=== PATIENT | female | born 1945 | race Caucasian/White ===

== ENCOUNTER → 2019-03-10 | Day surgery (SDC) | payer OTHER | LOC: JRADIR 09:51 ==

== ENCOUNTER → 2019-03-26 | Day surgery (SDC) | payer OTHER ==
--- NOTE | 2019-05-14 09:31 | PATH ---
Cytology Non-Gynecological Report Patient Name: HYUN STUBBS [facility]. Rec. #: [id number] /Age/Gender: 1945 (Age: 74) / F Account: [id number] Location: RADIOLOGY INTER Taken: 03/26/2019 Received: 03/27/2019 Reported: 03/27/2019 Physicians: Raúl Martínez M.D. Specimen(s) Received RIGHT THYROID FNA Clinical History Right, 1.98 x 1.53 x 1.43 cm Final Diagnosis THYROID, RIGHT, FINE NEEDLE ASPIRATION: UNSATISFACTORY FOR EVALUATION. BETHESDA CLASS I: NON-DIAGNOSTIC. RARE FOLLICULAR CELLS AND RARE COLLOID PRESENT. Comment: The specimen has insufficient follicular cell clusters and/or colloid; and suboptimal for complete cytopathologic evaluation according to [facility] [place] [facility] for Reporting Thyroid FNA. If the nodule has worrisome ultrasound imaging properties, suggest repeat FNA, as warranted. Electronically Signed Avelina Dos Santos M.D. Gross Description Received are eight direct smears, four of which are air-dried and Diff-Quik stained, and four of which are alcohol fixed and Pap stained. Also received is 20 ml of bloody formalin from which one cellblock is prepared.
== END | disposition home or self-care (01) ==
LOC: JRADIR 10:08
PROVIDERS: ATTEND Internal Medicine Endocrinology, Diabetes & Metabolism
PROC: 0G9K3ZX Drainage of Thyroid Gland, Percutaneous Approach, Diagnostic (ICD-10-PCS; principal; 2019-03-26)
PROC: BG44ZZZ Ultrasonography of Thyroid Gland (ICD-10-PCS; 2019-03-26)
DX: E04.1 Nontoxic single thyroid nodule (principal)
CPT/HCPCS: 76942; 88173; 88305-TC

== ENCOUNTER 2020-05-05 06:48 | Inpatient (IN) | payer OTHER ==
[2020-05-05 07:13] VITALS: BMI 29.2
--- NOTE | 2020-05-05 07:29 | PDOC ---
Attending Attestation - Resident Resident Name: Josiane Haney - HPI HPI: 05/05/20 09:36 Pt presents to the ED complaining of the acute onset of nausea, non bloody, non bilious vomiting and diarrhea. Patient has history of HTN, DM, HLD. Denies fever. Denies abdominal pain but complains of severe lightheadness. Denies prior abdominal surgeries. 05/05/20 09:38 - Physicial Exam PE: 05/05/20 09:40 Agree with resident exam. Patient is uncomfortable, retching and dry heaving on the stretcher. Abdomen is soft, non distended, but patient complains of diffuse abdominal tenderness. - Medical Decision Making 05/05/20 09:41 pt presents to the ED complaining of nausea and non bloody non billious vomiting and diarrhea. Vomiting in the ED despite IVF and zofran. Abdomen diffusely tender. Differential includes electrolyte disturbance, small bowel obstruction, urinary tract or other infection, biliary disease or pancreatitis, ACS, other intraabdominal pathology. Will check labs and Ct abdomen pelvis and reassess. Remains nauseous after zofran. Will treat with reglan. 05/05/20 09:45 Discharge - Discharge Information Problems reviewed: Yes Clinical Impression/Diagnosis: Weakness, Nausea vomiting and diarrhea Condition: Stable [facility]position[facility] - Follow up/Referral - Patient Discharge Instructions - Post Discharge Activity
--- NOTE | 2020-05-05 08:02 | PDOC ---
History of Present Illness - General Chief Complaint: Vomiting/Diarrhea Stated Complaint: VOMITING,WEAKNESS Time Seen by Provider: 05/05/20 07:28 - History of Present Illness Initial Comments: Pt is a 75yo F with PMH DM, HTN, HLD, ILD who presents with vomiting, diarrhea, and weakness. Pt states that symptoms began last night. Reports 5 episodes of diarrhea and multiple episodes of vomiting. Denies blood in emesis or bowel mov ements. States that she has been unable to keep either food or water down without vomiting. Denies any sick contacts, recent travel, new food. Denies f/c, chest pain, SOB, abdominal pain. PCP: Laura PMH: see HPI PSHx: thyroid surgery All: NKDA Past History - Medical History Allergies/Adverse Reactions: Allergies Allergy/AdvReac Type Severity Reaction Status Date / Time No Known Allergies Allergy Unverified 05/05/20 07:13 Home Medications: Ambulatory Orders Aspirin [Aspirin EC] 81 mg PO DAILY 03/21/20 Bimatoprost [Lumigan] 1 drop OU HS 03/21/20 Budesonide/Formeterol Fumarate [SYMBICORT 160/4.5mcg -] 1 inh PO BID #1 cannister 03/21/20 Furosemide 20 mg PO DAILY 03/21/20 Gabapentin 600 mg PO TID 03/21/20 Insulin Degludec [Tresiba Flextouch U-100] 45 unit SQ DAILY #1 insuln.pen 03/21/20 Prednisone See Taper PO DAILY #15 tablet 03/21/20 Ropinirole HCl [Requip -] 2 mg PO DAILY 03/21/20 Simvastatin 40 mg PO DAILY 03/21/20 Sitagliptin Phos/Metformin HCl [Janumet 50-1,000 mg Tablet] 1 tab PO BID 03/21/20 Bimatoprost [Lumigan] 1 drop OU DAILY 05/05/20 Asthma: Yes COPD: No Diabetes: Yes HTN: Yes Hypercholesterolemia: Yes - Psycho-Social/Smoking History Smoking History: Never smoked Have you smoked in the past 12 months: No Information on smoking cessation initiated: No - Substance Abuse Hx (Audit-C & DAST Scrn) How often the patient has a drink containing alcohol: Never Score: In Men: 4 or > Positive; In Women: 3 or > Positive: 0 Screen Result (Pos requires Nsg. Audit-10AR): Negative In the last yr the pt used illegal drug/Rx for NonMed reason: No Score: Yes response is considered Positive: 0 Screen Result (Positive result requires Nsg. DAST-10): Negative Review of Systems - Review of Systems Able to Perform ROS?: Yes Comments:: CONSTITUTIONAL:Reports weakness, denies fever, chills CARDIOVASCULAR:denies chest pain, palpitations RESPIRATORY:denies cough, shortness of breath, wheezing GASTROINTESTINAL: Reports nausea, vomiting, diarrhea; denies abdominal pain, melena, hematochezia GENITOURINARY:denies dysuria, frequency, urgency, hematuria NEUROLOGIC:denies headache *Physical Exam - Vital Signs Last Vital Signs Temp Pulse Resp BP Pulse Ox 97.6 F 78 18 165/77 98 05/05/20 07:09 05/05/20 07:09 05/05/20 07:09 05/05/20 07:09 05/05/20 07:09 - Physical Exam General: awake, alert, fully oriented, in moderate distress, well developed, well nourished Head: normocephalic, atraumatic Eyes: PERRL, anicteric sclera, conjunctiva clear ENT: Moist mucous membranes Lung: equal breath sounds b/l, CTA b/l, no crackles, wheezes; speaks full sentences Heart: RRR, normal S1, S2, no murmurs, rubs, gallops Abdomen: soft, non tender, hypoactive bowel sounds, no guarding, rebound, masses Extremities: 5/5 motor strength b/l LE, no edema, PT pulses 2+ and symmetric Neuro: CN2-12 grossly intact, moves all extremities, normal speech, abnormal gait, sensation intact Skin: warm, dry, no rashes or lesions noted 05/05/20 16:22 ED Treatment Course - LABORATORY CBC & Chemistry Diagram: 05/05/20 08:00 05/05/20 08:00 Medical Decision Making - Medical Decision Making Ms. Ferrari is a 75yo F with PMH DM, HTN, HLD, ILD who presents with vomiting, diarrhea, weakness. Vital Signs Temp Pulse Resp BP Pulse Ox 97.6 F 78 18 165/77 98 05/05/20 07:09 05/05/20 07:09 05/05/20 07:09 05/05/20 07:09 05/05/20 07:09 Laboratory 05/05/20 05/05/20 05/05/20 08:00 08:00 08:00 WBC 15.4 K/mm3 H K/mm3 (4.0-10.0) RBC 4.65 M/mm3 M/mm3 (3.60-5.2) Hgb 13.1 GM/dL GM/dL (10.7-15.3) Hct 40.5 % % (32.4-45.2) MCV 87.0 fl fl (80-96) MCH 28.2 pg pg (25.7-33.7) MCHC 32.4 g/dl g/dl (32.0-36.0) RDW 14.3 % % (11.6-15.6) Plt Count 184 K/MM3 K/MM3 (134-434) MPV 11.4 fl H D fl (7.5-11.1) Absolute Neuts (auto) 13.4 K/mm3 H K/mm3 (1.5-8.0) Neutrophils % 87.0 % H D % (42.8-82.8) Lymphocytes % 7.1 % L D % (8-40) Monocytes % 5.2 % % (3.8-10.2) Eosinophils % 0.5 % % (0-4.5) Basophils % 0.2 % % (0-2.0) Nucleated RBC % 0 % % (0-0) Sodium 140 mmol/L mmol/L (136-145) Potassium 3.7 mmol/L mmol/L (3.5-5.1) Chloride 103 mmol/L mmol/L (98-107) Carbon Dioxide 28 mmol/L mmol/L (21-32) Anion Gap 9 MMOL/L MMOL/L (8-16) BUN 27.8 mg/dL H mg/dL (7-18) Creatinine 0.8 mg/dL mg/dL (0.55-1.3) Est GFR (CKD-EPI)AfAm 84.18 Est GFR (CKD-EPI)NonAf 72.63 Random Glucose 204 mg/dL H mg/dL (74-106) Lactic Acid Calcium 9.0 mg/dL mg/dL (8.5-10.1) Total Bilirubin 0.3 mg/dL mg/dL (0.2-1) AST 17 U/L U/L (15-37) ALT 27 U/L U/L (13-61) Alkaline Phosphatase 60 U/L U/L (45-117) Creatine Kinase 92 U/L U/L (26-192) Troponin I < 0.02 ng/ml ng/ml (0.00-0.05) Total Protein 6.8 g/dl g/dl (6.4-8.2) Albumin 3.6 g/dl g/dl (3.4-5.0) Lipase 140 U/L U/L (73-393) Urine Color Urine Appearance Urine pH Ur Specific [place] Urine Protein Urine Glucose (UA) Urine Ketones Urine Blood Urine Nitrite Urine Bilirubin Urine Urobilinogen Ur Leukocyte Esterase Urine WBC (Auto) Urine RBC (Auto) Urine Casts (Auto) U Epithel Cells (Auto) Urine Bacteria (Auto) 05/05/20 05/05/20 08:20 09:00 WBC RBC Hgb Hct MCV MCH MCHC RDW Plt Count MPV Absolute Neuts (auto) Neutrophils % Lymphocytes % Monocytes % Eosinophils % Basophils % Nucleated RBC % Sodium Potassium Chloride Carbon Dioxide Anion Gap BUN Creatinine Est GFR (CKD-EPI)AfAm Est GFR (CKD-EPI)NonAf Random Glucose Lactic Acid 1.0 mmol/L mmol/L (0.4-2.0) Calcium Total Bilirubin AST ALT Alkaline Phosphatase Creatine Kinase Troponin I Total Protein Albumin Lipase Urine Color Yellow Urine Appearance Clear Urine pH 7.5 (5.0-8.0) Ur Specific [place] 1.018 (1.010-1.035) Urine Protein Trace (NEGATIVE) Urine Glucose (UA) 2+ H (NEGATIVE) Urine Ketones Negative (NEGATIVE) Urine Blood Negative (NEGATIVE) Urine Nitrite Negative (NEGATIVE) Urine Bilirubin Negative (NEGATIVE) Urine Urobilinogen 0.2 mg/dL mg/dL (0.2-1.0) Ur Leukocyte Esterase 1+ H (NEGATIVE) Urine WBC (Auto) 64 /uL /uL (0-25.8) Urine RBC (Auto) 6 /uL /uL (0-23.9) Urine Casts (Auto) 1 /uL /uL (0-3.1) U Epithel Cells (Auto) 16 /uL /uL (0-25.1) Urine Bacteria (Auto) 193 /uL /uL (0-1359) DDx: gastroenteritis, SBO, ACS, mesenteric ischemia Plan: labs, EKG, CT a/p EKG: HR 75, Normal sinus rhythm, intervals WNL, no ST changes Reassessment Given Zofran and Reglan for nausea, with no effect 05/05/20 11:38 CBC: leukocytosis (15.4), no anemia; CMP: electrolytes WNL UA with 1+ LE, given Rocephin Given Ofirmev for discomfort 05/05/20 12:56 Pt appears to be resting comfortably in bed Repeat EKG - HR 89, normal sinus rhythm, unchanged from initial EKG 05/05/20 13:33 Pt tolerating water, asking for food, says nausea is improved Complaining of leg pain, that she has a history of, treated in the past with predisone; no focal neuro exam findings on reassessment. Attempted to sit patient up, she complained of weakness. 05/05/20 15:00 Attempted to walk patient, she complained of weakness, dizziness and had unsteady gait, ordered Head CT. Head CT: mild to moderate atrophy, no gross evidence of focal intracranial lesion or hemorrhage Given patient's weakness/difficulty with ambulation, she is unstable for discharge. Patient and son agreeable for admission and rehabilitative care. 05/05/20 16:56 Spoke with Anshu Coburn ALL SOURCE ANALYST, who accepted care for patient. Admitting Dr. Brown Disposition Admit inpatient Discharge - Discharge Information Problems reviewed: Yes Clinical Impression/Diagnosis: Weakness, Nausea vomiting and diarrhea Condition: Stable - Admission Yes - Follow up/Referral Referrals: Barry Sanchez MD [Primary Care Provider] - - Patient Discharge Instructions - Post Discharge Activity
[2020-05-05] MEDS ORDERED: SODIUM CHLORIDE 500 ML IV STA (08:04)
[2020-05-05] MEDS ORDERED: ONDANSETRON 4 MG/2 ML VIAL IVPB ONE (08:06)
[2020-05-05] MEDS ORDERED: ONDANSETRON 4 MG/2 ML VIAL IVPUSH ONE (08:08)
[2020-05-05 08:32] LABS: BASO % 0.2 % (0-2.0); EOS % 0.5 % (0-4.5); HEMATOCRIT 40.5 % (32.4-45.2); HEMOGLOBIN 13.1 GM/dL (10.7-15.3); LYMPH % 7.1 % (8-40); MCH 28.2 pg (25.7-33.7); MCHC 32.4 g/dl (32.0-36.0); MEAN PLT VOLUME 11.4 fl (7.5-11.1); MONO % 5.2 % (3.8-10.2); PLATELET COUNT 184 K/MM3 (134-434); RBC 4.65 M/mm3 (3.60-5.2); RDW 14.3 % (11.6-15.6); WHITE BLOOD COUNT 15.4 K/mm3 (4.0-10.0)
[2020-05-05 08:58] LABS: ALBUMIN 3.6 g/dl (3.4-5.0); BILIRUBIN,TOTAL 0.3 mg/dL (0.2-1); BLOOD UREA NITROGEN 27.8 mg/dL (7-18); CREATININE 0.8 mg/dL (0.55-1.3); POTASSIUM 3.7 mmol/L (3.5-5.1); TOT PROT 6.8 g/dl (6.4-8.2)
[2020-05-05 09:04] LABS: LIPASE 140 U/L (73-393)
[2020-05-05] MEDS ORDERED: METOCLOPRAMIDE HCL INJECTION 10 MG/2 ML VIAL IVPUSH ONE (09:11)
[2020-05-05] MEDS ORDERED: METOCLOPRAMIDE HCL INJECTION 10 MG/2 ML VIAL ONE (09:14)
[2020-05-05 10:03] LABS: EPI CELLS 16 /uL (0-25.1); HYALINE CASTS 1 /uL (0-3.1); PH,URINE 7.5 (5.0-8.0); URINE APPEARANCE CLEAR; URINE BACTERIA 193 /uL (0-1359); URINE BILIRUBIN NEGATIVE (NEGATIVE); URINE COLOR YELLOW; URINE GLUCOSE (UA) 2+ (NEGATIVE); URINE KETONE NEGATIVE (NEGATIVE); URINE LEUK ESTERASE 1+ (NEGATIVE); URINE NITRITE NEGATIVE (NEGATIVE); URINE PROTEIN TRACE (NEGATIVE); URINE RBC 6 /uL (0-23.9); URINE UROBILINOGEN 0.2 mg/dL (0.2-1.0); URINE WBC 64 /uL (0-25.8)
[2020-05-05] MEDS ORDERED: ACETAMINOPHEN 1000 MG/100 ML VIAL (NON FORMULARY) IVPB ONE (11:29)
--- NOTE | 2020-05-05 11:49 | EKG ---
Test Reason : Blood Pressure : / mmHG Vent. Rate : 075 BPM Atrial Rate : 075 BPM P-R Int : 164 ms QRS Dur : 088 ms QT Int : 400 ms P-R-T Axes : 050 008 057 degrees QTc Int : 446 ms POOR DATA QUALITY, INTERPRETATION MAY BE ADVERSELY AFFECTED NORMAL SINUS RHYTHM NORMAL ECG WHEN COMPARED WITH ECG OF 21-MAR-2020 13:16, NO SIGNIFICANT CHANGE WAS FOUND Confirmed by ADELSO RUSSELL, BRIAN ([id number]) on 05/05/2020 11:48:45 AM Referred By: Confirmed By:BRIAN DARDEN MD
--- NOTE | 2020-05-05 11:54 | EKG ---
Test Reason : Blood Pressure : / mmHG Vent. Rate : 089 BPM Atrial Rate : 089 BPM P-R Int : 180 ms QRS Dur : 090 ms QT Int : 374 ms P-R-T Axes : 047 018 058 degrees QTc Int : 455 ms POOR DATA QUALITY, INTERPRETATION MAY BE ADVERSELY AFFECTED NORMAL SINUS RHYTHM POSSIBLE LEFT ATRIAL ENLARGEMENT BORDERLINE ECG WHEN COMPARED WITH ECG OF 05-MAY-2020 07:39, NO SIGNIFICANT CHANGE WAS FOUND Confirmed by BRIAN DARDEN MD ([id number]) on 05/05/2020 11:53:45 AM Referred By: Confirmed By:BRIAN DARDEN MD
[2020-05-05] MEDS ORDERED: CEFTRIAXONE 1 GM/50 ML BAG ONE (12:33)
[2020-05-05] MEDS ORDERED: ACETAMINOPHEN INJECTION 100 ML IVPB ONE (12:33)
[2020-05-05] MEDS ORDERED: PNEUMOC 13-VAL CONJ-DIP CRM/PF 0.5 ML DISP.SYRIN IM ONE (14:00)
[2020-05-05] MEDS ORDERED: ACETAMINOPHEN 325 MG TABLET (FP) PO PRN (16:54)
[2020-05-05] MEDS ORDERED: ONDANSETRON 4 MG/2 ML VIAL IVPUSH PRN (16:54)
[2020-05-05] MEDS: SODIUM CHLORIDE 1,000 ML IV SCH (17:17)
--- NOTE | 2020-05-05 20:13 | CON.GI ---
Consult Consult Specialty:: Gastroenterology Referred by:: Anshu Acosta NP Reason for Consultation:: N/V, diarrhea - History of Present Illness Chief Complaint: Vomiting, diarrhea and weakness History of Present Illness: 75F diabetic was found by her son in the bathroom c/o inability to get up off the toilet after suffering acute onset N/V and diarrhea. She had only one episode of diarrhea. Her son served as corner brace block machine operator. NO fever. She has leg pain but denies abdominal pain. Her son tells me she has chronic leg pain due to vasc ular insufficiency. She was exposed to antibiotics on 03/21 when she came to the ER for respiratory problems. NO recent foreign travel. Urine reveals leukocyte esterase. She has never had an EGD or a colonoscopy. 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: Yes: Peripheral Neuropathy Cardio/Vascular: Yes: HTN, Hyperlipdemia, Other (peripheral vascular disease LEs) Pulmonary: Yes: Asthma, Other (Interstitial lung disease) Endocrine: Yes: Diabetes Mellitus, Hypothyroidism (s/p partial thyroidectomy) Additional Medical History: Glaucoma - Past Surgical History Additional Surgical History: partial thyroidectomy - Alcohol/Substance Use Hx Alcohol Use: No History of Substance Use: reports: None - Smoking History Smoking history: Former smoker Have you smoked in the past 12 months: No If you are a former smoker, when did you quit?: 2019 - Social History Usual Living Arrangement: With Child ADL: Independent 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 (year): teenager History of Recent Travel: No Home Medications - Allergies Allergies/Adverse Reactions: Allergies Allergy/AdvReac Type Severity Reaction Status Date / Time No Known Allergies Allergy Unverified 05/05/20 07:13 - Home Medications Home Medications: Ambulatory Orders Aspirin [Aspirin EC] 81 mg PO DAILY 03/21/20 Budesonide/Formeterol Fumarate [SYMBICORT 160/4.5mcg -] 1 inh PO BID #1 cannister 03/21/20 Gabapentin 600 mg PO TID 03/21/20 Insulin Degludec [Tresiba Flextouch U-100] 45 unit SQ DAILY #1 insuln.pen 03/21/20 Ropinirole HCl [Requip -] 2 mg PO DAILY 03/21/20 Simvastatin 40 mg PO DAILY 03/21/20 Bimatoprost [Lumigan] 1 drop OU BID 05/05/20 Family Medical History Family Hx Cancer: Brother (unknown cancer) Family Hx Diabetes: Mother, Father, Brother Review of Systems - Review of Systems Constitutional: reports: Diaphoresis, Weakness Eyes: reports: No Symptoms HENT: reports: No Symptoms Cardiovascular: reports: Palpitations Gastrointestinal: reports: Diarrhea, Nausea, Vomiting Genitourinary: reports: Dysuria Musculoskeletal: reports: Extremity Pain Physical Exam-GI Vital Signs: Vital Signs Temperature 99.5 F 05/05/20 18:16 Pulse Rate 93 H 05/05/20 18:16 Respiratory Rate 18 05/05/20 18:16 Blood Pressure 158/71 05/05/20 18:16 O2 Sat by Pulse Oximetry (%) 98 05/05/20 18:16 CBC,CMP WBC 15.4 K/mm3 (4.0-10.0) H 05/05/20 08:00 RBC 4.65 M/mm3 (3.60-5.2) 05/05/20 08:00 Hgb 13.1 GM/dL (10.7-15.3) 05/05/20 08:00 Hct 40.5 % (32.4-45.2) 05/05/20 08:00 MCV 87.0 fl (80-96) 05/05/20 08:00 MCH 28.2 pg (25.7-33.7) 05/05/20 08:00 MCHC 32.4 g/dl (32.0-36.0) 05/05/20 08:00 RDW 14.3 % (11.6-15.6) 05/05/20 08:00 Plt Count 184 K/MM3 (134-434) 05/05/20 08:00 MPV 11.4 fl (7.5-11.1) H D 05/05/20 08:00 Absolute Neuts (auto) 13.4 K/mm3 (1.5-8.0) H 05/05/20 08:00 Neutrophils % 87.0 % (42.8-82.8) H D 05/05/20 08:00 Lymphocytes % 7.1 % (8-40) L D 05/05/20 08:00 Monocytes % 5.2 % (3.8-10.2) 05/05/20 08:00 Eosinophils % 0.5 % (0-4.5) 05/05/20 08:00 Basophils % 0.2 % (0-2.0) 05/05/20 08:00 Nucleated RBC % 0 % (0-0) 05/05/20 08:00 Sodium 140 mmol/L (136-145) 05/05/20 08:00 Potassium 3.7 mmol/L (3.5-5.1) 05/05/20 08:00 Chloride 103 mmol/L (98-107) 05/05/20 08:00 Carbon Dioxide 28 mmol/L (21-32) 05/05/20 08:00 Anion Gap 9 MMOL/L (8-16) 05/05/20 08:00 BUN 27.8 mg/dL (7-18) H 05/05/20 08:00 Creatinine 0.8 mg/dL (0.55-1.3) 05/05/20 08:00 Est GFR (CKD-EPI)AfAm 84.18 05/05/20 08:00 Est GFR (CKD-EPI)NonAf 72.63 05/05/20 08:00 POC Glucometer 270 UNITS (80-120) 05/05/20 17:10 Random Glucose 204 mg/dL (74-106) H 05/05/20 08:00 Lactic Acid 1.0 mmol/L (0.4-2.0) 05/05/20 08:20 Calcium 9.0 mg/dL (8.5-10.1) 05/05/20 08:00 Total Bilirubin 0.3 mg/dL (0.2-1) 05/05/20 08:00 AST 17 U/L (15-37) 05/05/20 08:00 ALT 27 U/L (13-61) 05/05/20 08:00 Alkaline Phosphatase 60 U/L (45-117) 05/05/20 08:00 Creatine Kinase 92 U/L (26-192) 05/05/20 08:00 Troponin I < 0.02 ng/ml (0.00-0.05) 05/05/20 08:00 Total Protein 6.8 g/dl (6.4-8.2) 05/05/20 08:00 Albumin 3.6 g/dl (3.4-5.0) 05/05/20 08:00 Lipase 140 U/L (73-393) 05/05/20 08:00 Current Medications Generic Name Dose Route Start Last Admin Trade Name Freq PRN Reason Stop Dose Admin Acetaminophen 650 mg 05/05/20 16:54 Tylenol - PO Q4H PRN PAIN 1-3 Aspirin 81 mg 05/06/20 10:00 Ecotrin - PO DAILY EMILY Budesonide/Formoterol Fumarate 1 puff 05/05/20 22:00 Symbicort 160/4.5mcg - IH BID EMILY Enoxaparin Sodium 40 mg 05/06/20 10:00 Lovenox - SQ DAILY EMILY Sodium Chloride 1,000 mls @ 75 mls/hr 05/05/20 17:00 05/05/20 17:17 Normal Saline - IV 75 mls/hr ASDIR EMILY Administration Insulin Aspart 0 units 05/06/20 07:00 Novolog Vial SQ TIDAC EMILY Protocol Latanoprost 1 drop 05/05/20 22:00 Xalatan 0.005% Eye Drops - OU HS EMILY Ondansetron HCl 4 mg 05/05/20 16:54 Zofran Injection IVPUSH Q4H PRN NAUSEA AND/OR VOMITING Pneumococcal 13-Valent Conj Vacc 0.5 ml 05/05/20 19:44 Prevnar 13 Syringe - IM 05/05/20 19:45 .ONCE ONE Ropinirole HCl 2 mg 05/06/20 10:00 Requip - PO DAILY EMILY Constitutional: Yes: Anxious Eyes: Yes: Conjunctiva Clear HENT: Yes: Atraumatic Neck: Yes: Supple, Other (healed thyroid incision) Cardiovascular: Yes: Regular Rate and Rhythm Respiratory: Yes: CTA Bilaterally Gastrointestinal Inspection: Yes: WNL, Distention (but soft) ...Auscultate: Yes: Hypoactive Bowel Sounds ...Palpate: Yes: Soft, Other (nontender) ...Percussion: Yes: Tympanitic ...Rectal Exam: Yes: Guaiac Negative (soft brown g neg stool) Edema: No Neurological: Yes: Alert Labs: CBC, BMP 05/05/20 08:00 05/05/20 08:00 Imaging - Results Cat Scan: Report Reviewed ( Final Report CT ABDOMEN & PELVIS CT WITH CONTR Show Printer-Friendly Version with Image (1 of 1) Show Printer- Friendly Version without images Patient Name: Hyun Ferrari : 1945 ID: [id number] Study Date: 05-May-2020 09:55 Farideh Ellsworth Name: HYUN FERRARI DEPARTMENT OF RADIOLOGY Phys: Lila Childs RES EM : 1945 Age: 75 Sex: F [facility] Acct: [id number] Loc: [address] Exam Date: 05/05/20 Status: REED German [id number] Unit Number: [id number] EXAM#: TYPE/EXAM: RESULT: [id number] CT/ABDOMEN PELVIS CT WITH CONTR Nausea, vomiting and diarrhea CT scan of the abdomen and pelvis following oral and intravenous contrast. Coronal and sagittal reformatted images were obtained 90 cc of Omnipaque 350 was intravenously injected Comparison: Prior CT scan of the chest dated 03/21/2020 There are mild atelectatic changes in lingular segment of the left upper lobe and in the right middle lobe as well as minimal interstitial thickening and scarring in the lower lobes. A questionable tiny hiatus hernia is present. The stomach is partially distended limiting evaluation of its wall. The liver, spleen and pancreas appear unremarkable. Gallbladder is adequately distended without gross intraluminal stones. Previously visualized left adrenal mass with heterogeneous attenuation and calcifications is again seen measuring 2.7 cm without gross interval change. The right adrenal gland and both kidneys appear unremarkable. There is no evidence of small bowel obstruction. Normal-appearing terminal ileum and appendix. Moderate amount of fecal residue in the ascending and proximal portion of the transverse colon. The rest of the colon is not distended, limiting evaluation of its wall. There are multiple diverticula and the distal descending and proximal sigmoid colon without evidence of acute diverticulitis. Normal size uterus with multiple calcific densities measuring up to 1.5 cm suggestive of calcified fibroids. Moderately distended urinary bladder without wall thickening. No free air, free fluid or gross enlarged lymph nodes are identified. Extensive calcified atheromatous plaques in the distal abdominal aorta down through its bifurcation. Moderate compression/anterior wedging of T11 vertebral body is again seen. There is also mild to moderate compression/anterior wedging of L1 vertebral body, likely chronic. Moderate compression of L4 vertebral body, of indetermin ate age with minimal retropulsion of its posterior/superior margin. Mild to moderate compression of L5 superior endplate with mild anterior wedging, of indeterminate age. Minimal retrolisthesis of L5. Moderate to marked degenerative disc disease at L5-S1 level. IMPRESSION: There is no CT evidence of an acute process in the abdomen pelvis. There is no evidence of small bowel obstruction or Nondistention of the colon from the mid transverse down to the rectum level limiting evaluation of its wall without gross thickening. Diverticulosis coli in the descending and proximal sigmoid colon without gross CT evidence of acute diverticulitis. No extraluminal air or abscess is identified. Multiple small calcified fibroids. Moderately distended urinary bladder without wall thickening. Multiple compression fractures in the lumbar spine and T11 vertebral body, as described above Reported By: Charlette White MD 05/05/20 1237 LILA CHILDS Technologist: Linn Angeles Transcribed Date/Time: 05/05/20 1237 Debeader: Charlette White Printed Date/Time: By: Signed by: Charlette White Signed on: 05-May-2020 12:38) Problem List - Problems (1) Diabetic gastroparesis Code(s): E11.43 - TYPE 2 DIABETES W DIABETIC AUTONOMIC (POLY)NEUROPATHY; K31.84 - GASTROPARESIS (2) Nausea vomiting and diarrhea Code(s): R11.2 - NAUSEA WITH VOMITING, UNSPECIFIED; R19.7 - DIARRHEA, UNSPECIFIED (3) Asthma Code(s): J45.909 - UNSPECIFIED ASTHMA, UNCOMPLICATED (4) Hypothyroid Code(s): E03.9 - HYPOTHYROIDISM, UNSPECIFIED (5) Peripheral vascular disease Code(s): I73.9 - PERIPHERAL VASCULAR DISEASE, UNSPECIFIED (6) Peripheral neuropathy Code(s): G62.9 - POLYNEUROPATHY, UNSPECIFIED (7) Glaucoma Code(s): H40.9 - UNSPECIFIED GLAUCOMA (8) Weakness Code(s): R53.1 - WEAKNESS (9) Hyperlipidemia Code(s): E78.5 - HYPERLIPIDEMIA, UNSPECIFIED Qualifiers: Hyperlipidemia type: pure hypercholesterolemia Qualified Code(s): E78.00 - Pure hypercholesterolemia, unspecified; E78.0 - Pure hypercholesterolemia (10) Interstitial lung disease Code(s): J84.9 - INTERSTITIAL PULMONARY DISEASE, UNSPECIFIED (11) Type 2 diabetes mellitus Code(s): E11.9 - TYPE 2 DIABETES MELLITUS WITHOUT COMPLICATIONS Qualifiers: Diabetes mellitus senior care insulin use: without senior care use Diabetes mellitus complication status: without complication Qualified Code(s): E11.9 - Type 2 diabetes mellitus without complications Assessment/Plan Impression - Given the sudden onset a viral gastroenteritis is posisble but the soin emphasizes that there was no subsequent diarrhea so this may be diabetic gastroparesis triggered by a UTI - Candidate for colon cancer screening Plan: - IV rehydration - Reglan IVPB - PPI empirically - Stool for cultures - Optimize diabetes management - Advance diet as tolerated - Refer for colonoscopy as outpatient- verbalized to her via her son
[2020-05-05] MEDS ORDERED: PT OWN MED DRAWER 7, Y5N ONE (20:59)
[2020-05-05] MEDS: BUDESONIDE/FORMETEROL FUMARATE 160/4.5 mcg INHALER IH SCH (21:30)
[2020-05-05] MEDS: METOCLOPRAMIDE HCL INJECTION 10 MG/2 ML VIAL IVPUSH SCH (21:31)
[2020-05-05] MEDS: LATANOPROST 0.005% OPHTH SOLN 2.5ML BOTTLE OU SCH (21:33)
[2020-05-05] MEDS ORDERED: PATIENT'S OWN MEDICATION (NON-FORMULARY) (Bimatoprost [Lumigan] 1 DROP) OU SCH (22:00)
[2020-05-05] MEDS: PANTOPRAZOLE SODIUM 40 MG VIAL IVPUSH SCH (23:35)
[2020-05-05] MEDS ORDERED: rOPINIRole HCL 2 MG TABLET (FP) PO SCH (23:45)
[2020-05-06] MEDS: METOCLOPRAMIDE HCL INJECTION 10 MG/2 ML VIAL IVPUSH SCH ×4 (02:00→20:58)
[2020-05-06] MEDS ORDERED: PT OWN MED DRAWER 7, Y5N ONE (06:07)
[2020-05-06] MEDS: INSULIN (NOVOLOG) ASPART 100 UNITS/ML 10ML VIAL SQ SCH ×3 (06:17→16:45)
[2020-05-06] MEDS: INSULIN (LEVEMIR) 100 UNITS/ML UNITS SQ SCH (07:16)
[2020-05-06 08:14] LABS: BASO % 0.4 % (0-2.0); EOS % 0.3 % (0-4.5); HEMATOCRIT 43.1 % (32.4-45.2); HEMOGLOBIN 14.2 GM/dL (10.7-15.3); LYMPH % 14.6 % (8-40); MCH 28.3 pg (25.7-33.7); MCHC 32.8 g/dl (32.0-36.0); MEAN CELL VOLUME 86.2 fl (80-96); MEAN PLT VOLUME 11.4 fl (7.5-11.1); MONO % 8.1 % (3.8-10.2); NEUT % 76.6 % (42.8-82.8); PLATELET COUNT 179 K/MM3 (134-434); RBC 5.01 M/mm3 (3.60-5.2); RDW 14.5 % (11.6-15.6)
--- NOTE | 2020-05-06 08:18 | HP ---
Admitting History and Physical - Admission History of Present Illness: 75F diabetic was found by her son in the bathroom c/o inability to get up off the toilet after suffering acute onset N/V and diarrhea. She had only one episode of diarrhea. She has leg pain but denies abdominal pain. Her son tells me she has chronic leg pain due to vascular insufficiency. 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 [employer] History of Recent Travel: No Home Medications - Allergies Allergies/Adverse Reactions: Allergies Allergy/AdvReac Type Severity Reaction Status Date / Time No Known Allergies Allergy Unverified 05/05/20 07:13 - Home Medications Home Medications: Ambulatory Orders Aspirin [Aspirin EC] 81 mg PO DAILY 03/21/20 Budesonide/Formeterol Fumarate [SYMBICORT 160/4.5mcg -] 1 inh PO BID #1 cannister 03/21/20 Gabapentin 600 mg PO TID 03/21/20 Insulin Degludec [Tresiba Flextouch U-100] 45 unit SQ DAILY #1 insuln.pen 03/21/20 Ropinirole HCl [Requip -] 2 mg PO DAILY 03/21/20 Simvastatin 40 mg PO DAILY 03/21/20 Bimatoprost [Lumigan] 1 drop OU BID 05/05/20 Physical Examination Vital Signs: Vital Signs Temperature 98.3 F 05/06/20 05:33 Pulse Rate 91 H 05/06/20 05:33 Respiratory Rate 20 05/06/20 05:33 Blood Pressure 127/76 05/06/20 05:33 O2 Sat by Pulse Oximetry (%) 97 05/06/20 05:33 Labs: CBC, BMP 05/05/20 08:00 Problem List - Problems (1) Diabetic gastroparesis Assessment/Plan: -GI CONSULT NOTED AND APPRECIATED -ON REGLAN -ADVACE DIET AND OBSRVE -CT SCAN NOTED Code(s): E11.43 - TYPE 2 DIABETES W DIABETIC AUTONOMIC (POLY)NEUROPATHY; K31.84 - GASTROPARESIS (2) Nausea vomiting and diarrhea Assessment/Plan: DUE TO ABOVE CAN NOT EXCLUDE AGE Code(s): R11.2 - NAUSEA WITH VOMITING, UNSPECIFIED; R19.7 - DIARRHEA, UNSPECIFIED (3) Weakness Assessment/Plan: MAYBE DUE ELEVATED BLOOD SUGARS BGM FOLLOW LABS PT Code(s): R53.1 - WEAKNESS (4) Type 2 diabetes mellitus Assessment/Plan: BGM INSULIN ENDO CONSULT Code(s): E11.9 - TYPE 2 DIABETES MELLITUS WITHOUT COMPLICATIONS Qualifiers: Diabetes mellitus snf insulin use: without intermediate school teacher use Diabetes mellitus complication status: without complication Qualified Code(s): E11.9 - Type 2 diabetes mellitus without complications (5) Dizziness Assessment/Plan: CT HEAD NOTED MECLIZINE NEURO Code(s): R42 - DIZZINESS AND GIDDINESS
[2020-05-06] MEDS: ENOXAPARIN NA (PORCINE) 40 MG/0.4 ML DISP.SYRIN SQ SCH (09:42)
[2020-05-06] MEDS: PANTOPRAZOLE SODIUM 40 MG VIAL IVPUSH SCH (09:42)
[2020-05-06] MEDS: BUDESONIDE/FORMETEROL FUMARATE 160/4.5 mcg INHALER IH SCH ×2 (09:43→21:52)
[2020-05-06] MEDS: ASPIRIN COATED 81 MG TABLET.EC PO SCH (09:43)
[2020-05-06] MEDS ORDERED: PATIENT'S OWN MEDICATION (NON-FORMULARY) (Bimatoprost [Lumigan] 1 DROP) OU SCH (10:00)
[2020-05-06] MEDS ORDERED: PANTOPRAZOLE SODIUM 40 MG in SODIUM CHLORIDE 100 ML IVPB SCH (10:00)
[2020-05-06] MEDS ORDERED: rOPINIRole HCL 2 MG TABLET (FP) PO SCH (10:00)
[2020-05-06] MEDS: MECLIZINE HCL 12.5 MG TABLET PO SCH ×2 (15:18→23:52)
--- NOTE | 2020-05-06 18:04 | CON.NEURO ---
Consult Consult Specialty:: neuro Reason for Consultation:: dizziness - History of Present Illness History of Present Illness: 75F diabetic was found by her son in the bathroom c/o inability to get up off the toilet after suffering acute onset N/V and diarrhea. She had only one ep isode of diarrhea. She has leg pain but denies abdominal pain. Her son tells me she has chronic leg pain due to vascular insufficiency. I saw and examined the pt at the bedside , chart and CT head reviewed. Pt awake , sitting on the side of her bed , seems mildly distressed. 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: Peripheral Neuropathy Cardio/Vascular: Yes: HTN, Hyperlipdemia, Other (peripheral vascular disease LEs) Pulmonary: Yes: Asthma, Other (Interstitial lung disease) Endocrine: Yes: Diabetes Mellitus, Hypothyroidism (s/p partial thyroidectomy) Additional Medical History: Glaucoma - Past Surgical History Additional Surgical History: partial thyroidectomy - Alcohol/Substance Use Hx Alcohol Use: No History of Substance Use: reports: None - Smoking History Smoking history: Former smoker Have you smoked in the past 12 months: No If you are a former smoker, when did you quit?: 2019 - Social History Usual Living Arrangement: With Child ADL: Independent 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 [employer] History of Recent Travel: No Home Medications - Allergies Allergies/Adverse Reactions: Allergies Allergy/AdvReac Type Severity Reaction Status Date / Time No Known Allergies Allergy Unverified 05/05/20 07:13 - Home Medications Home Medications: Ambulatory Orders Aspirin [Aspirin EC] 81 mg PO DAILY 03/21/20 Budesonide/Formeterol Fumarate [SYMBICORT 160/4.5mcg -] 1 inh PO BID #1 cannister 03/21/20 Gabapentin 600 mg PO TID 03/21/20 Insulin Degludec [Tresiba Flextouch U-100] 45 unit SQ DAILY #1 insuln.pen 03/21/20 Ropinirole HCl [Requip -] 2 mg PO DAILY 03/21/20 Simvastatin 40 mg PO DAILY 03/21/20 Bimatoprost [Lumigan] 1 drop OU BID 05/05/20 Review of Systems - Review of Systems Constitutional: reports: Weakness (Generalized) Eyes: reports: No Symptoms HENT: reports: No Symptoms Cardiovascular: reports: No Symptoms Respiratory: reports: No Symptoms Hematology/Lymphatic: reports: No Symptoms Psychiatric: reports: No Symptoms Physical Exam-Neuro Vital Signs: Vital Signs Temperature 98.0 F 05/06/20 10:00 Pulse Rate 88 05/06/20 10:00 Respiratory Rate 20 05/06/20 10:00 Blood Pressure 130/73 05/06/20 10:00 O2 Sat by Pulse Oximetry (%) 98 05/06/20 10:00 Constitutional: Yes: Well Nourished, Calm, Mild Distress Neck: Yes: Supple Cardiovascular: Yes: Regular Rate and Rhythm Respiratory: Yes: Regular Edema: No Psychiatric: Yes: Alert, Oriented Labs: CBC, BMP 05/06/20 07:25 05/05/20 08:00 - Neuro Exam Level Of Consciousness: Yes: Alert, Oriented to Person, Oriented to Place Eyes: Yes: PERRLA Speech: WNL Cranial Nerves II-XII Intact: Yes Gag: Absent DTR's: 1+ Left Bicep, 1+ Right Bicep, 1+ Left Tricep, 1+ Right Tricep, 1+ Left Brachioradialis, 1+ Right Brachioradialis, 1+ Left Achilles, 1+ Right Achilles Babinski: Absent Response to light touch: Normal Response to pain prick: Normal Coordination: Normal: Finger to Nose Motor Strength: 4/5: Left Arm, Right Arm, Left Leg, Right Leg Gait: Other (Unsteady) Imaging - Results Cat Scan: Report Reviewed, Image Reviewed (CTH -ve for acute finding.) Problem List - Problems (1) Dizziness Code(s): R42 - DIZZINESS AND GIDDINESS (2) Peripheral neuropathy Code(s): G62.9 - POLYNEUROPATHY, UNSPECIFIED (3) Peripheral vascular disease Code(s): I73.9 - PERIPHERAL VASCULAR DISEASE, UNSPECIFIED (4) Weakness Code(s): R53.1 - WEAKNESS Assessment/Plan 75 y/o F , w h/o HTN, asthma p/w diarrhea , unsteady gait , generalized weakness ; on exam no nystagmus or lateralized weakness, no face droop or ataxia ; unsteady gait and feeling dizziness when ambulate ; CTH -ve for acute PARIMUTUEL CLERK pathology . Dizziness due to ? Peripheral vestibular lesion , inflammation , vs BPV vs cerebellar . Will obtain MRI/A brain wo carotid u/s ECHO COVID pending PT/OT Fall precautions vestibular rehab VNG as OP meclizine as needed Health maintenance per primary team. Thank you for allowing us to participate in the care of this patient. Abel Castellon MD [phone]
[2020-05-06] MEDS: SODIUM CHLORIDE 1,000 ML IV SCH (19:46)
[2020-05-06] MEDS: rOPINIRole HCL 1 MG TABLET (FP) PO SCH (21:49)
[2020-05-06] MEDS: LATANOPROST 0.005% OPHTH SOLN 2.5ML BOTTLE OU SCH (21:53)
[2020-05-07] MEDS: METOCLOPRAMIDE HCL INJECTION 10 MG/2 ML VIAL IVPUSH SCH ×2 (02:41→09:22)
[2020-05-07] MEDS: INSULIN (LEVEMIR) 100 UNITS/ML UNITS SQ SCH (06:21)
[2020-05-07] MEDS: GABAPENTIN 300 MG CAPSULE PO SCH ×3 (06:21→21:40)
[2020-05-07] MEDS: MECLIZINE HCL 12.5 MG TABLET PO SCH ×4 (06:21→23:57)
[2020-05-07] MEDS: INSULIN (NOVOLOG) ASPART 100 UNITS/ML 10ML VIAL SQ SCH ×3 (06:22→16:30)
--- NOTE | 2020-05-07 07:41 | PN.GI ---
GI Progress Note Subjective: no new complaints - feeling better - Objective Vital Signs: Vital Signs Temperature 97.9 F 05/07/20 05:27 Pulse Rate 76 05/07/20 05:27 Respiratory Rate 18 05/07/20 05:27 Blood Pressure 137/74 05/07/20 05:27 O2 Sat by Pulse Oximetry (%) 95 05/07/20 05:27 Constitutional: Well Nourished, No Distress Cardiovascular: Yes: WNL Respiratory: Yes: WNL, Regular, CTA Bilaterally Gastrointestinal Inspection: Yes: WNL ...Auscultate: Yes: Normoactive Bowel Sounds Edema: No Labs: CBC, BMP 05/06/20 07:25 05/05/20 08:00 Problem List - Problems (1) Nausea vomiting and diarrhea Assessment/Plan: diet as tolerated antiemetic prn tight glycemic control outpt GI f/u for further management. Code(s): R11.2 - NAUSEA WITH VOMITING, UNSPECIFIED; R19.7 - DIARRHEA, UNSPECIFIED
[2020-05-07 07:56] LABS: BASO % 0.4 % (0-2.0); EOS % 2.7 % (0-4.5); HEMATOCRIT 39.6 % (32.4-45.2); HEMOGLOBIN 12.7 GM/dL (10.7-15.3); LYMPH % 38.7 % (8-40); MCH 27.9 pg (25.7-33.7); MCHC 32.2 g/dl (32.0-36.0); MEAN CELL VOLUME 86.6 fl (80-96); MONO % 10.4 % (3.8-10.2); NEUT % 47.8 % (42.8-82.8); PLATELET COUNT 178 K/MM3 (134-434); RBC 4.57 M/mm3 (3.60-5.2); RDW 14.5 % (11.6-15.6); WHITE BLOOD COUNT 7.3 K/mm3 (4.0-10.0)
[2020-05-07 08:21] LABS: BLOOD UREA NITROGEN 12.6 mg/dL (7-18); CALCIUM 7.9 mg/dL (8.5-10.1); POTASSIUM 4.5 mmol/L (3.5-5.1)
[2020-05-07 08:36] LABS: BILIRUBIN,TOTAL 0.5 mg/dL (0.2-1); CREATININE 0.7 mg/dL (0.55-1.3); TOT PROT 5.9 g/dl (6.4-8.2)
[2020-05-07] MEDS: ASPIRIN COATED 81 MG TABLET.EC PO SCH (09:22)
[2020-05-07] MEDS: PANTOPRAZOLE SODIUM 40 MG VIAL IVPUSH SCH (09:22)
[2020-05-07] MEDS: ENOXAPARIN NA (PORCINE) 40 MG/0.4 ML DISP.SYRIN SQ SCH (09:22)
[2020-05-07] MEDS: BUDESONIDE/FORMETEROL FUMARATE 160/4.5 mcg INHALER IH SCH ×2 (09:23→21:40)
--- NOTE | 2020-05-07 09:45 | DS ---
Physical Examination Vital Signs: Vital Signs Temperature 97.9 F 05/07/20 05:27 Pulse Rate 76 05/07/20 05:27 Respiratory Rate 18 05/07/20 05:27 Blood Pressure 137/74 05/07/20 05:27 O2 Sat by Pulse Oximetry (%) 95 05/07/20 05:27 Cardiovascular: Yes: Regular Rate and Rhythm Respiratory: Yes: Regular, CTA Bilaterally Gastrointestinal: Yes: Normal Bowel Sounds, Soft Neurological: Yes: Alert, Oriented Labs: CBC, BMP 05/07/20 07:20 05/07/20 07:20 Discharge Summary Problems reviewed: Yes Reason For Visit: WEAKNESS Current Active Problems Asthma (Acute) Diabetic gastroparesis (Acute) Dizziness (Acute) Glaucoma (Acute) Hypothyroid (Acute) Nausea vomiting and diarrhea (Acute) Peripheral neuropathy (Acute) Peripheral vascular disease (Acute) Weakness (Acute) Hospital Course: - Problems (1) Diabetic gastroparesis Assessment/Plan: -GI CONSULT NOTED AND APPRECIATED -ON REGLAN--10 PO ACTID -ADVACE DIET AND OBSRVE -CT SCAN NOTED Code(s): E11.43 - TYPE 2 DIABETES W DIABETIC AUTONOMIC (POLY)NEUROPATHY; K31.84 - GASTROPARESIS (2) Nausea vomiting and diarrhea Assessment/Plan: DUE TO ABOVE CAN NOT EXCLUDE AGE Code(s): R11.2 - NAUSEA WITH VOMITING, UNSPECIFIED; R19.7 - DIARRHEA, UNSPECIFI ED (3) Weakness Assessment/Plan: MAYBE DUE ELEVATED BLOOD SUGARS BGM FOLLOW LABS PT Code(s): R53.1 - WEAKNESS (4) Type 2 diabetes mellitus Assessment/Plan: BGM INSULIN ENDO CONSULT Code(s): E11.9 - TYPE 2 DIABETES MELLITUS WITHOUT COMPLICATIONS Qualifiers: Diabetes mellitus termite helper insulin use: without termite helper use Diabetes mellitus complication status: without complication Qualified Code(s): E11.9 - Type 2 diabetes mellitus without complications (5) Dizziness Assessment/Plan: CT HEAD NOTED MECLIZINE NEURO--NOTED MRI PENDING E/O CVA Code(s): R42 - DIZZINESS AND GIDDINESS IF MRI OK AND TOLERATING DIET THEN DC HOME VS SNF 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 TO SEE Condition: Stable - Instructions Referrals: Barry Sanchez MD [Primary Care Provider] - 1 Week Disposition: HOME - Home Medications Comprehensive Discharge Medication List: Ambulatory Orders Aspirin [Aspirin EC] 81 mg PO DAILY 03/21/20 Budesonide/Formeterol Fumarate [SYMBICORT 160/4.5mcg -] 1 inh PO BID #1 cannister 03/21/20 Gabapentin 600 mg PO TID 03/21/20 Ropinirole HCl [Requip -] 2 mg PO DAILY 03/21/20 Simvastatin 40 mg PO DAILY 03/21/20 Bimatoprost [Lumigan] 1 drop OU BID 05/05/20 Acetaminophen [Tylenol .Regular Strength -] 650 mg PO Q4H PRN tablet 05/07/20 Insulin (Levemir) [Levemir Vial] 25 units SQ AM units 05/07/20 Latanoprost 0.005% Eye Drops [Xalatan 0.005% Eye Drops -] 1 drop OU HS drops 05/07/20 Meclizine HCl [Antivert -] 12.5 mg PO Q6HPO PRN #30 tablet 05/07/20 Pantoprazole Sodium [Protonix IV] 40 mg IVPUSH DAILY #30 vial 05/07/20
[2020-05-07] MEDS: METOCLOPRAMIDE HCL 10 MG TABLET (FP) PO SCH ×2 (11:27→16:31)
[2020-05-07] MEDS ORDERED: PT OWN MED DRAWER 7, Y5N ONE ×4 (12:00→22:34)
--- NOTE | 2020-05-07 15:04 | EKG ---
Test Reason : Blood Pressure : / mmHG Vent. Rate : 087 BPM Atrial Rate : 087 BPM P-R Int : 150 ms QRS Dur : 088 ms QT Int : 370 ms P-R-T Axes : 055 -47 062 degrees QTc Int : 445 ms NORMAL SINUS RHYTHM POSSIBLE LEFT ATRIAL ENLARGEMENT LEFT AXIS DEVIATION ABNORMAL ECG WHEN COMPARED WITH ECG OF 05-MAY-2020 11:52, T WAVE AMPLITUDE HAS DECREASED IN LATERAL LEADS Confirmed by LORNA CRONIN MD ([id number]) on 05/07/2020 3:03:56 PM Referred By: CHASE GRAHAM DR Confirmed By:LORNA CRONIN MD
[2020-05-07] MEDS ORDERED: PNEUMOC 13-VAL CONJ-DIP CRM/PF 0.5 ML DISP.SYRIN IM ONE (16:00)
[2020-05-07] MEDS: rOPINIRole HCL 1 MG TABLET (FP) PO SCH (21:40)
[2020-05-07] MEDS: LATANOPROST 0.005% OPHTH SOLN 2.5ML BOTTLE OU SCH (21:40)
--- NOTE | 2020-05-07 23:52 | CONSULT ---
Consult Consult Specialty:: Endocrine Referred by:: Dr.Iyad Brown Reason for Consultation:: DMT2,neuropathy - History of Present Illness Chief Complaint: nausea and vomiting History of Present Illness: 75yo F with PMH DMT2,nodular thyroid, HTN, HLD, ILD who presented with vomiting, diarrhea, and weakness. Pt Reports several episodes of diarrhea and multiple episodes of vomiting. Denies blood in emesis or bowel movements. States that she has been unable to keep either food or water down without vomiting.difficulty ambulating unable to walk alone,found to have cva on mri brain.she denies fever cough or chest pain. 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 Cardio/Vascular: Yes: HTN, Hyperlipdemia, Other (peripheral vascular disease LEs) Pulmonary: Yes: Asthma, Other (Interstitial lung disease) Endocrine: Yes: Diabetes Mellitus, Hypothyroidism (s/p partial thyroidectomy) Additional Medical History: Glaucoma - Past Surgical History Additional Surgical History: partial thyroidectomy - Alcohol/Substance Use Hx Alcohol Use: No History of Substance Use: reports: None - Smoking History Smoking history: Former smoker Have you smoked in the past 12 months: No If you are a former smoker, when did you quit?: 2019 - Social History Usual Living Arrangement: With Child ADL: Independent 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 [employer] History of 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 Travel: No Home Medications - Allergies Allergies/Adverse Reactions: Allergies Allergy/AdvReac Type Severity Reaction Status Date / Time No Known Allergies Allergy Unverified 05/05/20 07:13 - Home Medications Home Medications: Ambulatory Orders Aspirin [Aspirin EC] 81 mg PO DAILY 03/21/20 Budesonide/Formeterol Fumarate [SYMBICORT 160/4.5mcg -] 1 inh PO BID #1 cannister 03/21/20 Gabapentin 600 mg PO TID 03/21/20 Ropinirole HCl [Requip -] 2 mg PO DAILY 03/21/20 Simvastatin 40 mg PO DAILY 03/21/20 Bimatoprost [Lumigan] 1 drop OU BID 05/05/20 Acetaminophen [Tylenol .Regular Strength -] 650 mg PO Q4H PRN tablet 05/07/20 Insulin (Levemir) [Levemir Vial] 25 units SQ AM units 05/07/20 Latanoprost 0.005% Eye Drops [Xalatan 0.005% Eye Drops -] 1 drop OU HS drops 05/07/20 Meclizine HCl [Antivert -] 12.5 mg PO Q6HPO PRN #30 tablet 05/07/20 Pantoprazole Sodium [Protonix IV] 40 mg IVPUSH DAILY #30 vial 05/07/20 Review of Systems - Review of Systems Constitutional: reports: Lethargy Eyes: reports: Blurred Vision HENT: reports: Difficult Swallowing Neck: reports: No Symptoms Cardiovascular: reports: No Symptoms Respiratory: reports: Exercise Intolerance, SOB Gastrointestinal: reports: Bloating, Diarrhea, Nausea, Vomiting Blood Breasts: reports: No Symptoms Reported Musculoskeletal: reports: Muscle Pain, Muscle Cramps, Muscle Weakness Integumentary: reports: No Symptoms Neurological: reports: Change in Speech, Confusion, Incoordination, Numbness, Unsteady Gait, Weakness Physical Exam Vital Signs: Vital Signs Temperature 97.6 F 05/07/20 17:03 Pulse Rate 83 05/07/20 17:03 Respiratory Rate 18 05/07/20 17:03 Blood Pressure 126/78 05/07/20 17:03 O2 Sat by Pulse Oximetry (%) 95 05/07/20 17:03 Labs: CBC, BMP 05/07/20 07:20 05/07/20 07:20 Problem List - Problems (1) Diabetic gastroparesis Code(s): E11.43 - TYPE 2 DIABETES W DIABETIC AUTONOMIC (POLY)NEUROPATHY; K31.84 - GASTROPARESIS (2) Dizziness Code(s): R42 - DIZZINESS AND GIDDINESS (3) Glaucoma Code(s): H40.9 - UNSPECIFIED GLAUCOMA (4) Nausea vomiting and diarrhea Code(s): R11.2 - NAUSEA WITH VOMITING, UNSPECIFIED; R19.7 - DIARRHEA, UNSPECIFIED (5) Peripheral neuropathy Code(s): G62.9 - POLYNEUROPATHY, UNSPECIFIED (6) Peripheral vascular disease Code(s): I73.9 - PERIPHERAL VASCULAR DISEASE, UNSPECIFIED Assessment/Plan Current Active Problems Asthma (Acute) Diabetic gastroparesis (Acute) Dizziness (Acute) Glaucoma (Acute) Hypothyroid (Acute) Nausea vomiting and diarrhea (Acute) Peripheral neuropathy (Acute) Peripheral vascular disease (Acute) Weakness (Acute) Abnormal Lab Results 05/07/20 05/07/20 07:20 07:20 Monocytes % 10.4 H Chloride 110 H Anion Gap 6 L Random Glucose 115 H Calcium 7.9 L Total Protein 5.9 L Albumin 3.0 L Laboratory Results - last 24 hr 05/05/20 05/07/20 05/07/20 17:19 06:20 07:20 WBC 7.3 RBC 4.57 Hgb 12.7 Hct 39.6 MCV 86.6 MCH 27.9 MCHC 32.2 RDW 14.5 Plt Count 178 MPV 11.0 Absolute Neuts (auto) 3.5 Neutrophils % 47.8 D Lymphocytes % 38.7 D Monocytes % 10.4 H Eosinophils % 2.7 D Basophils % 0.4 Nucleated RBC % 0 Sodium Potassium Chloride Carbon Dioxide Anion Gap BUN Creatinine Est GFR (CKD-EPI)AfAm Est GFR (CKD-EPI)NonAf POC Glucometer 126 Random Glucose Calcium Total Bilirubin AST ALT Alkaline Phosphatase Total Protein Albumin COVID-19 (LAURIE) Not detected 05/07/20 05/07/20 05/07/20 07:20 11:24 15:54 WBC RBC Hgb Hct MCV MCH MCHC RDW Plt Count MPV Absolute Neuts (auto) Neutrophils % Lymphocytes % Monocytes % Eosinophils % Basophils % Nucleated RBC % Sodium 143 Potassium 4.5 Chloride 110 H Carbon Dioxide 27 Anion Gap 6 L BUN 12.6 Creatinine 0.7 Est GFR (CKD-EPI)AfAm 98.92 Est GFR (CKD-EPI)NonAf 85.35 POC Glucometer 147 189 Random Glucose 115 H Calcium 7.9 L Total Bilirubin 0.5 AST 34 ALT 30 Alkaline Phosphatase 52 Total Protein 5.9 L Albumin 3.0 L COVID-19 (LAURIE) 05/07/20 21:26 WBC RBC Hgb Hct MCV MCH MCHC RDW Plt Count MPV Absolute Neuts (auto) Neutrophils % Lymphocytes % Monocytes % Eosinophils % Basophils % Nucleated RBC % Sodium Potassium Chloride Carbon Dioxide Anion Gap BUN Creatinine Est GFR (CKD-EPI)AfAm Est GFR (CKD-EPI)NonAf POC Glucometer 209 Random Glucose Calcium Total Bilirubin AST ALT Alkaline Phosphatase Total Protein Albumin COVID-19 (LAURIE) plan: bgm qid novolog scale levemir dose25 iu am dose titrate as diet is controlled lipid panel adjust statin asa [facility]
[2020-05-08] MEDS ORDERED: PT OWN MED DRAWER 7, Y5N ONE ×4 (06:07→22:01)
[2020-05-08] MEDS: GABAPENTIN 300 MG CAPSULE PO SCH ×3 (06:18→22:05)
[2020-05-08] MEDS: METOCLOPRAMIDE HCL 10 MG TABLET (FP) PO SCH ×3 (06:19→18:09)
[2020-05-08] MEDS: INSULIN (LEVEMIR) 100 UNITS/ML UNITS SQ SCH (06:19)
[2020-05-08] MEDS: INSULIN (NOVOLOG) ASPART 100 UNITS/ML 10ML VIAL SQ SCH ×3 (06:19→16:30)
[2020-05-08] MEDS: MECLIZINE HCL 12.5 MG TABLET PO SCH ×3 (06:19→18:08)
--- NOTE | 2020-05-08 08:48 | PN ---
Progress Note, Physician - Current Medication List Current Medications: Active Medications Acetaminophen (Tylenol -) 650 mg PO Q4H PRN PRN Reason: PAIN 1-3 Last Admin: 05/05/20 20:16 Dose: 650 mg Documented by: Atorvastatin Calcium (Lipitor -) 40 mg PO ONCE ONE Stop: 05/08/20 08:47 Atorvastatin Calcium (Lipitor -) 40 mg PO [facility] Budesonide/Formoterol Fumarate (Symbicort 160/4.5mcg -) 1 puff IH BID [facility] Last Admin: 05/07/20 21:40 Dose: 1 puff Documented by: Dipyridamole/Aspirin (Aggrenox -) 1 combo PO BID [facility] Enoxaparin Sodium (Lovenox -) 40 mg SQ DAILY [facility] Last Admin: 05/07/20 09:22 Dose: 40 mg Documented by: Gabapentin (Neurontin -) 600 mg PO TID [facility] Last Admin: 05/08/20 06:18 Dose: 600 mg Documented by: Insulin Aspart (Novolog Vial) 0 units SQ TIDAC [facility]; Protocol Last Admin: 05/08/20 06:19 Dose: Not Given Documented by: Insulin Detemir (Levemir Vial) 25 units SQ AM [facility] Last Admin: 05/08/20 06:19 Dose: 25 units Documented by: Latanoprost (Xalatan 0.005% Eye Drops -) 1 drop OU [facility] Last Admin: 05/07/20 21:40 Dose: 1 drop Documented by: Meclizine HCl (Antivert -) 12.5 mg PO Q6HPO [facility] Last Admin: 05/08/20 06:19 Dose: 12.5 mg Documented by: Metoclopramide HCl (Reglan -) 10 mg PO TIDAC [facility] Last Admin: 05/08/20 06:19 Dose: 10 mg Documented by: Ondansetron HCl (Zofran Injection) 4 mg IVPUSH Q4H PRN PRN Reason: NAUSEA AND/OR VOMITING Last Admin: 05/05/20 20:18 Dose: 4 mg Documented by: Pantoprazole Sodium (Protonix Iv) 40 mg IVPUSH DAILY [facility] Last Admin: 05/07/20 09:22 Dose: 40 mg Documented by: Ropinirole HCl (Requip -) 2 mg PO [facility] Last Admin: 07/18/20 21:40 Dose: 2 mg Documented by: - Objective Vital Signs: Vital Signs Temperature 100 F H 05/07/20 22:00 Pulse Rate 86 05/07/20 22:00 Respiratory Rate 20 05/07/20 22:00 Blood Pressure 134/59 L 05/07/20 22:00 O2 Sat by Pulse Oximetry (%) 95 05/07/20 22:00 Cardiovascular: Yes: S1, S2 Respiratory: Yes: Regular, CTA Bilaterally Gastrointestinal: Yes: Normal Bowel Sounds, Soft Neurological: Yes: Alert, Oriented, Unsteady Gait, Weakness Labs: CBC, BMP 05/07/20 07:20 05/07/20 07:20 Problem List - Problems (1) Diabetic gastroparesis Assessment/Plan: -GI CONSULT NOTED AND APPRECIATED -ON REGLAN -ADVACE DIET AND OBSRVE -CT SCAN NOTED Code(s): E11.43 - TYPE 2 DIABETES W DIABETIC AUTONOMIC (POLY)NEUROPATHY; K31.84 - GASTROPARESIS (2) Nausea vomiting and diarrhea Assessment/Plan: DUE TO ABOVE CAN NOT EXCLUDE AGE Code(s): R11.2 - NAUSEA WITH VOMITING, UNSPECIFIED; R19.7 - DIARRHEA, UNSPECIFIED (3) Weakness Assessment/Plan: MAYBE DUE ELEVATED BLOOD SUGARS BGM FOLLOW LABS PT Code(s): R53.1 - WEAKNESS (4) Type 2 diabetes mellitus Assessment/Plan: BGM INSULIN ENDO CONSULT Code(s): E11.9 - TYPE 2 DIABETES MELLITUS WITHOUT COMPLICATIONS Qualifiers: Diabetes mellitus jail insulin use: without superintendent marine oil terminal use Diabetes mellitus complication status: without complication Qualified Code(s): E11.9 - Type 2 diabetes mellitus without complications (5) Dizziness Assessment/Plan: CT HEAD NOTED MECLIZINE NEURO Code(s): R42 - DIZZINESS AND GIDDINESS (6) CVA (cerebral vascular accident) Assessment/Plan: MRI NOTED AND DISCUSSED WITH PT CHANGE ASA TO AGGRENOX HOLTER TELE STATIN PT EVAL NEURO FOLLOW UP CAARDIO CONSULT ECHO Code(s): I63.9 - CEREBRAL INFARCTION, UNSPECIFIED
[2020-05-08] MEDS ORDERED: ATORVASTATIN CA 40 MG TABLET (FP) PO ONE (09:00)
[2020-05-08] MEDS: ASPIRIN/DIPYRIDAMOLE 25 MG/200 MG CAPSULE PO SCH ×2 (10:01→22:05)
[2020-05-08] MEDS: ENOXAPARIN NA (PORCINE) 40 MG/0.4 ML DISP.SYRIN SQ SCH (10:02)
[2020-05-08] MEDS: PANTOPRAZOLE SODIUM 40 MG VIAL IVPUSH SCH (10:03)
[2020-05-08] MEDS: BUDESONIDE/FORMETEROL FUMARATE 160/4.5 mcg INHALER IH SCH ×2 (10:03→22:06)
--- NOTE | 2020-05-08 11:58 | CON.CARD ---
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 Currently asymptomatic. Wearing a holter. 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 Cardio/Vascular: Yes: HTN, Hyperlipdemia, Other (peripheral vascular disease LEs) Pulmonary: Yes: Asthma, Other (Interstitial lung disease) Endocrine: Yes: Diabetes Mellitus, Hypothyroidism (s/p partial thyroidectomy) Additional Medical History: Glaucoma - Past Surgical History Additional Surgical History: partial thyroidectomy - Alcohol/Substance Use Hx Alcohol Use: No History of Substance Use: reports: None - Smoking History Smoking history: Former smoker Have you smoked in the past 12 months: No If you are a former smoker, when did you quit?: 2019 - Social History Usual Living Arrangement: With Child ADL: Independent 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 [employer] History of Recent Travel: No Home Medications - Allergies Allergies/Adverse Reactions: Allergies Allergy/AdvReac Type Severity Reaction Status Date / Time No Known Allergies Allergy Unverified 05/05/20 07:13 - Home Medications Home Medications: Ambulatory Orders Aspirin [Aspirin EC] 81 mg PO DAILY 03/21/20 Budesonide/Formeterol Fumarate [SYMBICORT 160/4.5mcg -] 1 inh PO BID #1 cannister 03/21/20 Gabapentin 600 mg PO TID 03/21/20 Ropinirole HCl [Requip -] 2 mg PO DAILY 03/21/20 Simvastatin 40 mg PO DAILY 03/21/20 Bimatoprost [Lumigan] 1 drop OU BID 05/05/20 Acetaminophen [Tylenol .Regular Strength -] 650 mg PO Q4H PRN tablet 05/07/20 Insulin (Levemir) [Levemir Vial] 25 units SQ AM units 05/07/20 Latanoprost 0.005% Eye Drops [Xalatan 0.005% Eye Drops -] 1 drop OU HS drops 05/07/20 Meclizine HCl [Antivert -] 12.5 mg PO Q6HPO PRN #30 tablet 05/07/20 Pantoprazole Sodium [Protonix IV] 40 mg IVPUSH DAILY #30 vial 05/07/20 Review of Systems - Review of Systems Constitutional: reports: No Symptoms Eyes: reports: No Symptoms HENT: reports: No Symptoms Neck: reports: No Symptoms Cardiovascular: reports: No Symptoms. denies: Chest Pain, Palpitations, Shortness of Breath Respiratory: reports: No Symptoms. denies: Cough Gastrointestinal: reports: Vomiting Genitourinary: reports: No Symptoms Endocrine: reports: No Symptoms Vital Signs: Vital Signs Temperature 100 F H 05/07/20 22:00 Pulse Rate 86 05/07/20 22:00 Respiratory Rate 05/07/20 22:00 Blood Pressure 134/59 L 05/07/20 22:00 O2 Sat by Pulse Oximetry (%) 95 05/07/20 22:00 Constitutional: Yes: Well Nourished, No Distress Eyes: Yes: Conjunctiva Clear, EOM Intact HENT: Yes: Atraumatic, Normocephalic Neck: Yes: Supple, Trachea Midline Respiratory: Yes: Regular, CTA Bilaterally Gastrointestinal: Yes: Normal Bowel Sounds, Soft Cardiovascular: Yes: Regular Rate and Rhythm JVD: No Carotid Bruit: No PMI: Non-Displaced Heart Sounds: Yes: S1, S2 Murmur: No: Systolic Murmur, Diastolic Murmur Edema: No - Other Data Labs, Other Data: CBC, BMP 05/07/20 07:20 05/07/20 07:[address] T changes Problem List - Problems (1) Dizziness Code(s): R42 - DIZZINESS AND GIDDINESS Assessment/Plan 75 F DM, HTN HLD no prior ho arrhythmia or CAD was admitted with dizziness and vomiting and found to have a 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 Currently asymptomatic. Wearing a holter. Transfer to telemetry Follow HOlter results Echocardiogram Neurology FU May consider ILR placement.
--- NOTE | 2020-05-08 18:46 | PN ---
Progress Note, Physician Chief Complaint: 75F diabetic was found by her son in the bathroom c/o inability to get up off the toilet after suffering acute onset N/V and diarrhea. She had only one episode of diarrhea. She has leg pain but denies abdominal pain. Her son tells me she has chronic leg pain due to vascular insufficiency. I saw and examined the pt at the bedside , chart and CT head reviewed. Pt awake , sitting on the side of her bed , seems mildly distressed. C/o Dizziness , unsteady gait when ambulate; started w sick stomach , diarrhea , has Generalized weakness -Seen by my colleague Dr. Castellon- Dizziness due to ? Peripheral vestibular lesion , inflammation , vs BPV vs cerebellar . Will obtain MRI/A brain wo carotid u/s ECHO COVID pending PT/OT Fall precautions vestibular rehab [facility] as OP meclizine as needed MRI-right cerebellar hemisphere/vermian infarct in addition to right centrum semiovale infarct. MRA- 3mm left ica intracavernous aneurysm. -States she feels better, has no vertigo. O/E: Awake, alert, well orientd. Has righjt UE dysmetria, wide based gait. A/P: right sup. cerebellar art. territory infarction in addition to centrum(white matter) infarct. Agree with ASA/Dipyrimadole, high dose statin. Maddie mejia she has had infarcts in two vascular territories would ensure longer term monitoring for card. arrhythmia as outpt. She can be d/rayo to rehab as planned. Thank you, Sangeeta Kowalski MD - Current Medication List Current Medications: Active Medications Acetaminophen (Tylenol -) 650 mg PO Q4H PRN PRN Reason: PAIN 1-3 Last Admin: 05/05/20 20:16 Dose: 650 mg Documented by: Atorvastatin Calcium (Lipitor -) 40 mg PO HS [facility] Budesonide/Formoterol Fumarate (Symbicort 160/4.5mcg -) 1 puff IH BID [facility] Last Admin: 05/08/20 10:03 Dose: 1 puff Documented by: Dipyridamole/Aspirin (Aggrenox -) 1 combo PO BID [facility] Last Admin: 05/08/20 10:01 Dose: 1 combo Documented by: Enoxaparin Sodium (Lovenox -) 40 mg SQ DAILY [facility] Last Admin: 05/08/20 10:02 Dose: 40 mg Documented by: Gabapentin (Neurontin -) 600 mg PO TID [facility] Last Admin: 05/08/20 14:15 Dose: 600 mg Documented by: Insulin Aspart (Novolog Vial) 0 units SQ TIDAC [facility]; Protocol Last Admin: 05/08/20 16:30 Dose: Not Given Documented by: Insulin Detemir (Levemir Vial) 25 units SQ AM [facility] Last Admin: 05/08/20 06:19 Dose: 25 units Documented by: Latanoprost (Xalatan 0.005% Eye Drops -) 1 drop OU HS [facility] Last Admin: 05/07/20 21:40 Dose: 1 drop Documented by: Meclizine HCl (Antivert -) 12.5 mg PO Q6HPO [facility] Last Admin: 05/08/20 18:08 Dose: 12.5 mg Documented by: Metoclopramide HCl (Reglan -) 10 mg PO TIDAC [facility] Last Admin: 05/08/20 18:09 Dose: Not Given Documented by: Ondansetron HCl (Zofran Injection) 4 mg IVPUSH Q4H PRN PRN Reason: NAUSEA AND/OR VOMITING Last Admin: 05/05/20 20:18 Dose: 4 mg Documented by: Pantoprazole Sodium (Protonix Iv) 40 mg IVPUSH DAILY [facility] Last Admin: 05/08/20 10:03 Dose: 40 mg Documented by: Ropinirole HCl (Requip -) 2 mg PO [facility] Last Admin: 05/07/20 21:40 Dose: 2 mg Documented by: - Objective Vital Signs: Vital Signs Temperature 98.9 F 05/08/20 10:00 Pulse Rate 84 05/08/20 10:00 Respiratory Rate 18 05/08/20 10:00 Blood Pressure 129/76 05/08/20 10:00 O2 Sat by Pulse Oximetry (%) 96 05/08/20 10:00 Labs: CBC, BMP 05/07/20 07:20 05/07/20 07:20
[2020-05-08] MEDS: rOPINIRole HCL 1 MG TABLET (FP) PO SCH (22:05)
[2020-05-08] MEDS: LATANOPROST 0.005% OPHTH SOLN 2.5ML BOTTLE OU SCH (22:06)
[2020-05-08] MEDS ORDERED: ONDANSETRON 4 MG/2 ML VIAL IVPUSH PRN (23:16)
--- NOTE | 2020-05-08 23:17 | PN ---
Progress Note (short form) - Note Progress Note: remains with difficulty walking and balance Laboratory Results - last 24 hr 05/08/20 05/08/20 05/08/20 06:17 11:22 16:36 POC Glucometer 165 195 153 05/08/20 21:18 POC Glucometer 127 Current Active Problems Asthma (Acute) CVA (cerebral vascular accident) (Acute) Diabetic gastroparesis (Acute) Dizziness (Acute) Glaucoma (Acute) Nausea vomiting and diarrhea (Acute) Peripheral neuropathy (Acute) Peripheral vascular disease (Acute) Weakness (Acute) plan: bgm achs novolog scale levemir 25 units am reglan 10mg tid Problem List - Problems (1) Diabetic gastroparesis Code(s): E11.43 - TYPE 2 DIABETES W DIABETIC AUTONOMIC (POLY)NEUROPATHY; K31.84 - GASTROPARESIS (2) Dizziness Code(s): R42 - DIZZINESS AND GIDDINESS (3) Glaucoma Code(s): H40.9 - UNSPECIFIED GLAUCOMA (4) Nausea vomiting and diarrhea Code(s): R11.2 - NAUSEA WITH VOMITING, UNSPECIFIED; R19.7 - DIARRHEA, UNSPECIFIED (5) Peripheral neuropathy Code(s): G62.9 - POLYNEUROPATHY, UNSPECIFIED (6) Peripheral vascular disease Code(s): I73.9 - PERIPHERAL VASCULAR DISEASE, UNSPECIFIED
[2020-05-09] MEDS: MECLIZINE HCL 12.5 MG TABLET PO SCH ×5 (00:06→23:05)
[2020-05-09] MEDS: GABAPENTIN 300 MG CAPSULE PO SCH ×3 (05:52→21:17)
[2020-05-09] MEDS: METOCLOPRAMIDE HCL 10 MG TABLET (FP) PO SCH ×3 (05:59→17:13)
[2020-05-09] MEDS: INSULIN SLIDING SCALE (NOVOLOG) 1 VIAL SQ SCH ×3 (05:59→17:12)
[2020-05-09] MEDS: INSULIN (LEVEMIR) 100 UNITS/ML UNITS SQ SCH (06:46)
--- NOTE | 2020-05-09 08:46 | PN ---
Progress Note, Physician - Current Medication List Current Medications: Active Medications Acetaminophen (Tylenol -) 650 mg PO Q4H PRN PRN Reason: PAIN 1-3 Atorvastatin Calcium (Lipitor -) 40 mg PO [facility] Budesonide/Formoterol Fumarate (Symbicort 160/4.5mcg -) 1 puff IH BID [facility] Dipyridamole/Aspirin (Aggrenox -) 1 combo PO BID [facility] Enoxaparin Sodium (Lovenox -) 40 mg SQ DAILY [facility] Gabapentin (Neurontin -) 600 mg PO TID [facility] Last Admin: 05/09/20 05:52 Dose: 600 mg Documented by: Insulin Aspart (Novolog Vial Sliding Scale -) 1 vial SQ TIDAC [facility]; Protocol Last Admin: 05/09/20 05:59 Dose: Not Given Documented by: Insulin Detemir (Levemir Vial) 25 units SQ AM [facility] Last Admin: 05/09/20 06:46 Dose: 25 units Documented by: Latanoprost (Xalatan 0.005% Eye Drops -) 1 drop OU [facility] Meclizine HCl (Antivert -) 12.5 mg PO Q6HPO [facility] Last Admin: 05/09/20 05:52 Dose: 12.5 mg Documented by: Metoclopramide HCl (Reglan -) 10 mg PO TIDAC [facility] Last Admin: 05/09/20 05:59 Dose: 10 mg Documented by: Ondansetron HCl (Zofran Injection) 4 mg IVPUSH Q4H PRN PRN Reason: NAUSEA AND/OR VOMITING Pantoprazole Sodium (Protonix Iv) 40 mg IVPUSH DAILY [facility] Ropinirole HCl (Requip -) 2 mg PO [facility] - Objective Vital Signs: Vital Signs Temperature 98.9 F 05/09/20 06:00 Pulse Rate 81 05/09/20 06:00 Respiratory Rate 20 05/09/20 06:00 Blood Pressure 145/70 05/09/20 06:00 O2 Sat by Pulse Oximetry (%) 98 05/09/20 02:00 Cardiovascular: Yes: Regular Rate and Rhythm Respiratory: Yes: Regular, CTA Bilaterally Gastrointestinal: Yes: Normal Bowel Sounds, Soft Neurological: Yes: Alert, Oriented, Unsteady Gait, Weakness Labs: CBC, BMP 05/07/20 07:20 05/07/20 07:20 Problem List - Problems (1) CVA (cerebral vascular accident) Assessment/Plan: MRI NOTED AND DISCUSSED WITH PT CHANGE ASA TO AGGRENOX HOLTER TELE STATIN PT EVAL NEURO FOLLOW UP NOTED AND APPRECIATED CAARDIO CONSULT NOTED AND APPRECIATED ECHO Code(s): I63.9 - CEREBRAL INFARCTION, UNSPECIFIED (2) Diabetic gastroparesis Assessment/Plan: -GI CONSULT NOTED AND APPRECIATED -ON REGLAN -ADVACE DIET AND OBSRVE -CT SCAN NOTED Code(s): E11.43 - TYPE 2 DIABETES W DIABETIC AUTONOMIC (POLY)NEUROPATHY; K31.84 - GASTROPARESIS (3) Nausea vomiting and diarrhea Assessment/Plan: DUE TO ABOVE CAN NOT EXCLUDE AGE Code(s): R11.2 - NAUSEA WITH VOMITING, UNSPECIFIED; R19.7 - DIARRHEA, UNSPECIFIED (4) Weakness Assessment/Plan: MAYBE DUE ELEVATED BLOOD SUGARS BGM FOLLOW LABS PT Code(s): R53.1 - WEAKNESS (5) Type 2 diabetes mellitus Assessment/Plan: BGM INSULIN ENDO CONSULT Code(s): E11.9 - TYPE 2 DIABETES MELLITUS WITHOUT COMPLICATIONS Qualifiers: Diabetes mellitus rn long term care insulin use: without snf use Diabetes mellitus complication status: without complication Qualified Code(s): E11.9 - Type 2 diabetes mellitus without complications (6) Dizziness Assessment/Plan: CT HEAD NOTED MECLIZINE NEURO Code(s): R42 - DIZZINESS AND GIDDINESS
--- NOTE | 2020-05-09 09:51 | ECHO ---
Name: HYUN STUBBS Exam:Adult Echocardiogram Study Date: 05/09/2020 09:15 AM Age: 75 yrs Reason For Study: CVA Height: 59 in Weight: 167 lb BSA: 1.7 m2 MMode/2D Measurements & Calculations RVDd: 3.5 cm Ao root diam: 2.8 cm IVSd: 0.97 cm LA dimension: 3.1 cm LVIDd: 4.8 cm ACS: 1.7 cm LVIDs: 3.2 cm LVPWd: 0.90 cm EDV(Teich): 106.2 ml LVOT diam: 2.0 cm ESV(Teich): 42.0 ml LAV (MOD-bp): 38.0 ml TAPSE: 2.3 cm RV S Jose: 15.1 cm/sec Doppler Measurements & Calculations MV E max jose: 64.7 cm/sec Ao V2 max: 130.3 cm/sec MV A max jose: 84.4 cm/sec Ao max P.8 mmHg MV E/A: 0.77 Ao V2 mean: 91.8 cm/sec MV dec time: 0.25 sec Ao mean P.7 mmHg Ao V2 VTI: 28.4 cm STARLA(I,D): 2.5 cm2 STARLA(V,D): 2.7 cm2 LV V1 max P.3 mmHg SV(LVOT): 70.0 ml LV V1 mean P.7 mmHg LV V1 max: 115.5 cm/sec LV V1 mean: 75.3 cm/sec LV V1 VTI: 23.1 cm TR max jose: 213.1 cm/sec PA V2 max: 95.0 cm/sec TR max P.2 mmHg PA max P.6 mmHg PA acc slope: 664.9 cm/sec2 PA acc time: 0.12 sec PI end-d jose: 66.5 cm/sec Med Peak E' Jose: 3.6 cm/sec Med E/e': 17.9 Lat Peak E' Jose: 5.7 cm/sec Lat E/e': 11.4 PA pr(Accel): 23.5 mmHg Tech Comments TDS due to body habitus. Left Ventricle The left ventricle is normal in size. There is mild concentric left ventricular hypertrophy. The left ventricular ejection fraction is normal. Ejection Fraction = 60-65%. The transmitral spectral Doppler flow pattern is suggestive of impaired LV relaxation. Right Ventricle The right ventricle is normal in size and function. Atria Normal left and right atrial size and function. Mitral Valve The mitral valve leaflets appear normal. There is no evidence of stenosis, fluttering, or prolapse. T here is no mitral regurgitation noted. Tricuspid Valve The tricuspid valve is not well visualized, but is grossly normal. No tricuspid regurgitation. Aortic Valve There is mild aortic sclerosis.;. No hemodynamically significant valvular aortic stenosis. No aortic regurgitation is present. Pulmonic Valve The pulmonic valve is not well seen, but is grossly normal. There is no pulmonic valvular regurgitati on. Great Vessels The aortic root is normal size. Pericardium/Pleura There is no pericardial effusion. Interpretation Summary LV; Normal size,mild LVH,normal systolic function, EF 60-65%,impaired relaxation RV: Normal No significant valvular dysfunction. Tori Pathak 05/09/2020 09:51 AM
[2020-05-09] MEDS: ASPIRIN/DIPYRIDAMOLE 25 MG/200 MG CAPSULE PO SCH ×2 (10:07→21:17)
[2020-05-09] MEDS: ENOXAPARIN NA (PORCINE) 40 MG/0.4 ML DISP.SYRIN SQ SCH (10:07)
[2020-05-09] MEDS: BUDESONIDE/FORMETEROL FUMARATE 160/4.5 mcg INHALER IH SCH ×2 (10:08→21:17)
[2020-05-09] MEDS: PANTOPRAZOLE SODIUM 40 MG VIAL IVPUSH SCH (10:08)
--- NOTE | 2020-05-09 12:07 | HOL ---
Hook-up date: 2020-05-08 10:45:00 Duration: 24:00:00 Test Indications: CVA Medications: [id number] QRS complexes * Ventricular ectopics which represent % of total QRS comp. 79 Supraventricular ectopics which represent <1 % of total QRS comp. * Paced QRS complexs which represent % of total QRS comp. * % of Time Classified as Noise VENTRICULAR ECTOPY * Isolated * Bigeminal Cycles * Couplets * Runs * Beats in Runs * Beats LONGEST at * BPM at :: -- * Beats FASTEST at * BPM at :: -- SUPRAVENTRICULAR ECTOPY 61 Isolated 6 Couplets 2 Runs 6 Beats in Runs 3 Beats LONGEST at 112 BPM at 13:12:38 2020-05-08 3 Beats FASTEST at 120 BPM at 20:51:57 2020-05-08 HEART RATES 63 MIN at 03:30:04 2020-05-09 77 AVG 99 MAX at 20:14:17 2020-05-08 LONGEST RR 1.120 secs at 03:30:00 2020-05-09 SCANNED BY TENZIN JONES ON 05/09/20 Normal sinus rhythm Rare APCs, 3 runs of 6 beats. Confirmed by Tori Pathak ([id number]) on 05/09/2020 12:07:09 PM Referred By: CHASE RAMAN DR Overread By: Tori Pathak
--- NOTE | 2020-05-09 12:56 | PN ---
Progress Note, Physician History of Present Illness: pt seen and examined today in nad. states she is feeling better. residual numbness/weakness LE. no overnight events. no new complaints. - Current Medication List Current Medications: Active Medications Acetaminophen (Tylenol -) 650 mg PO Q4H PRN PRN Reason: PAIN 1-3 Atorvastatin Calcium (Lipitor -) 40 mg PO [facility] Budesonide/Formoterol Fumarate (Symbicort 160/4.5mcg -) 1 puff IH BID [facility] Last Admin: 05/09/20 10:08 Dose: 1 puff Documented by: Dipyridamole/Aspirin (Aggrenox -) 1 combo PO BID [facility] Last Admin: 05/09/20 10:07 Dose: 1 combo Documented by: Enoxaparin Sodium (Lovenox -) 40 mg SQ DAILY [facility] Last Admin: 05/09/20 10:07 Dose: 40 mg Documented by: Gabapentin (Neurontin -) 600 mg PO TID [facility] Last Admin: 05/09/20 05:52 Dose: 600 mg Documented by: Insulin Aspart (Novolog Vial Sliding Scale -) 1 vial SQ TIDAC [facility]; Protocol Last Admin: 05/09/20 11:50 Dose: 2 units Documented by: Insulin Detemir (Levemir Vial) 25 units SQ AM [facility] Last Admin: 05/09/20 06:46 Dose: 25 units Documented by: Latanoprost (Xalatan 0.005% Eye Drops -) 1 drop OU [facility] Meclizine HCl (Antivert -) 12.5 mg PO Q6HPO [facility] Last Admin: 05/09/20 11:50 Dose: 12.5 mg Documented by: Metoclopramide HCl (Reglan -) 10 mg PO TIDAC [facility] Last Admin: 05/09/20 11:50 Dose: 10 mg Documented by: Ondansetron HCl (Zofran Injection) 4 mg IVPUSH Q4H PRN PRN Reason: NAUSEA AND/OR VOMITING Pantoprazole Sodium (Protonix Iv) 40 mg IVPUSH DAILY [facility] Last Admin: 05/09/20 10:08 Dose: 40 mg Documented by: Ropinirole HCl (Requip -) 2 mg PO [facility] - Objective Vital Signs: Vital Signs Temperature 98.4 F 05/09/20 10:00 Pulse Rate 75 07/20/20 10:00 Respiratory Rate 18 05/09/20 10:00 Blood Pressure 120/63 05/09/20 10:00 O2 Sat by Pulse Oximetry (%) 98 05/09/20 10:00 Constitutional: Yes: No Distress, Calm Eyes: Yes: Conjunctiva Clear, EOM Intact, Other HENT: Yes: Normocephalic Neck: Yes: Supple, Trachea Midline Cardiovascular: Yes: Regular Rate and Rhythm, S1, S2. No: Bradycardia, Tachycardia, Pulse Irregular, Bruit, JVD, Gallop, Murmur, Rub, S3, S4, Varicosities Respiratory: Yes: Regular, CTA Bilaterally. No: Rales, Rhonchi, Wheezes Gastrointestinal: Yes: Normal Bowel Sounds, Soft Musculoskeletal: Yes: Muscle Weakness Peripheral Pulses WNL: Yes Neurological: Yes: Alert, Oriented Psychiatric: Yes: Alert, Oriented Labs: CBC, BMP 05/07/20 07:20 05/07/20 07:20 - ....Imaging Chest X-ray: Report Reviewed, Image Reviewed EKG: Report Reviewed, Image Reviewed Other: Report Reviewed, Image Reviewed (tele-no sig arrhythmias recorded) Assessment/Plan 75 F DM, HTN HLD no prior ho arrhythmia or CAD was admitted with dizziness and vomiting and found to have a 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 Currently asymptomatic. CVA -no cardiac source indentified thus far -no sig arrhythmias on telemetry -echo showed normal LVEF and no sig valvular abnl -receiving Aggrenox and atorvastatin -rec longer term event monitoring as outpatient, usually with a wearable event monitor x 30 days and if no afib/aflutter identified then would consider ILR implant -Neurology following -recc close outpatient cardiology fup.
[2020-05-09 16:52] LABS: ALBUMIN 3.1 g/dl (3.4-5.0); BILIRUBIN,TOTAL 0.2 mg/dL (0.2-1); BLOOD UREA NITROGEN 15.8 mg/dL (7-18); CALCIUM 8.4 mg/dL (8.5-10.1); CREATININE 0.7 mg/dL (0.55-1.3); POTASSIUM 4.3 mmol/L (3.5-5.1); TOT PROT 6.2 g/dl (6.4-8.2)
[2020-05-09] MEDS: LATANOPROST 0.005% OPHTH SOLN 2.5ML BOTTLE OU SCH (21:16)
[2020-05-09] MEDS: ATORVASTATIN CA 40 MG TABLET (FP) PO SCH (21:17)
[2020-05-09] MEDS: rOPINIRole HCL 1 MG TABLET (FP) PO SCH (21:17)
[2020-05-09] MEDS ORDERED: ATORVASTATIN CA 40 MG TABLET (FP) PO SCH (22:00)
[2020-05-10] MEDS: INSULIN SLIDING SCALE (NOVOLOG) 1 VIAL SQ SCH ×3 (06:26→16:59)
[2020-05-10] MEDS: INSULIN (LEVEMIR) 100 UNITS/ML UNITS SQ SCH (06:44)
[2020-05-10] MEDS: METOCLOPRAMIDE HCL 10 MG TABLET (FP) PO SCH ×3 (06:44→16:59)
[2020-05-10] MEDS: MECLIZINE HCL 12.5 MG TABLET PO SCH ×3 (06:44→16:59)
[2020-05-10] MEDS: GABAPENTIN 300 MG CAPSULE PO SCH ×3 (06:44→21:07)
[2020-05-10] MEDS ORDERED: INSULIN (LEVEMIR) 100 UNITS/ML UNITS SQ ONE (06:49)
[2020-05-10] MEDS ORDERED: INSULIN SLIDING SCALE (NOVOLOG) 1 VIAL SQ ONE (06:50)
[2020-05-10] MEDS ORDERED: PT OWN MED DRAWER 7, Y5N ONE ×2 (06:50→20:59)
--- NOTE | 2020-05-10 09:30 | DS ---
Physical Examination Vital Signs: Vital Signs Temperature 98.8 F 05/10/20 06:24 Pulse Rate 72 05/10/20 06:24 Respiratory Rate 20 05/10/20 06:24 Blood Pressure 145/65 05/10/20 06:24 O2 Sat by Pulse Oximetry (%) 98 05/09/20 21:45 Labs: CBC, BMP 05/07/20 07:20 05/09/20 15:50 Discharge Summary Problems reviewed: Yes Reason For Visit: WEAKNESS Current Active Problems Asthma (Acute) CVA (cerebral vascular accident) (Acute) Diabetic gastroparesis (Acute) Dizziness (Acute) Glaucoma (Acute) Hypothyroid (Acute) Nausea vomiting and diarrhea (Acute) Peripheral neuropathy (Acute) Peripheral vascular disease (Acute) Weakness (Acute) Hospital Course: - Problems (1) Diabetic gastroparesis Assessment/Plan: -GI CONSULT NOTED AND APPRECIATED -ON REGLAN--10 PO ACTID -ADVACE DIET AND OBSRVE -CT SCAN NOTED Code(s): E11.43 - TYPE 2 DIABETES W DIABETIC AUTONOMIC (POLY)NEUROPATHY; K31.84 - GASTROPARESIS (2) Nausea vomiting and diarrhea Assessment/Plan: DUE TO ABOVE CAN NOT EXCLUDE AGE Code(s): R11.2 - NAUSEA WITH VOMITING, UNSPECIFIED; R19.7 - DIARRHEA, UNSPECIFIED (3) Weakness Assessment/Plan: MAYBE DUE ELEVATED BLOOD SUGARS BGM FOLLOW LABS PT Code(s): R53.1 - WEAKNESS (4) Type 2 diabetes mellitus Assessment/Plan: BGM INSULIN ENDO CONSULT Code(s): E11.9 - TYPE 2 DIABETES MELLITUS WITHOUT COMPLICATIONS 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: without 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 use Diabetes mellitus complication status: without complication Qualified Code(s): E11.9 - Type 2 diabetes mellitus without complications (5) Dizziness Assessment/Plan: CT HEAD NOTED MECLIZINE NEURO--NOTED MRI PENDING E/O CVA Code(s): R42 - DIZZINESS AND GIDDINESS IF MRI OK AND TOLERATING DIET THEN DC HOME VS SNF 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 Condition: Stable - Instructions Referrals: Barry Sanchez MD [Primary Care Provider] - 1 Week Disposition: HOME - Home Medications Comprehensive Discharge Medication List: Ambulatory Orders Budesonide/Formeterol Fumarate [SYMBICORT 160/4.5mcg -] 1 inh PO BID #1 cannister 03/21/20 Gabapentin 600 mg PO TID 03/21/20 Ropinirole HCl [Requip -] 2 mg PO DAILY 03/21/20 Bimatoprost [Lumigan] 1 drop OU BID 05/05/20 Acetaminophen [Tylenol .Regular Strength -] 650 mg PO Q4H PRN tablet 05/07/20 Insulin (Levemir) [Levemir Vial] 25 units SQ AM units 05/07/20 Latanoprost 0.005% Eye Drops [Xalatan 0.005% Eye Drops -] 1 drop OU HS drops 05/07/20 Meclizine HCl [Antivert -] 12.5 mg PO Q6HPO PRN #30 tablet 05/07/20 Aspirin/Dipyridamole [Aggrenox -] 1 combo PO BID capsule 05/10/20 Atorvastatin Ca [Lipitor] 40 mg PO HS tablet 05/10/20 Enoxaparin [Lovenox -] 40 mg SQ DAILY disp.syrin 05/10/20 Insulin Sliding Scale [Novolog Vial Sliding Scale -] 1 vial SQ TIDAC units 05/10/20 Metoclopramide HCl [Reglan -] 10 mg PO TIDAC tablet 05/10/20 Pantoprazole Sodium [Protonix -] 40 mg PO DAILY #30 tablet.ec 05/10/20
[2020-05-10] MEDS: ENOXAPARIN NA (PORCINE) 40 MG/0.4 ML DISP.SYRIN SQ SCH (10:04)
[2020-05-10] MEDS: ASPIRIN/DIPYRIDAMOLE 25 MG/200 MG CAPSULE PO SCH ×2 (10:04→21:07)
[2020-05-10] MEDS: PANTOPRAZOLE SODIUM 40 MG VIAL IVPUSH SCH (10:04)
[2020-05-10] MEDS: BUDESONIDE/FORMETEROL FUMARATE 160/4.5 mcg INHALER IH SCH ×2 (10:04→21:08)
--- NOTE | 2020-05-10 10:22 | PN ---
Progress Note, Physician History of Present Illness: seen and examined today in nad. d/w daughter on phone at bedside. no overnight events. no new complaints. - Current Medication List Current Medications: Active Medications Acetaminophen (Tylenol -) 650 mg PO Q4H PRN PRN Reason: PAIN 1-3 Atorvastatin Calcium (Lipitor -) 40 mg PO HS [facility] Last Admin: 05/09/20 21:17 Dose: 40 mg Documented by: Budesonide/Formoterol Fumarate (Symbicort 160/4.5mcg -) 1 puff IH BID [facility] Last Admin: 05/10/20 10:04 Dose: 1 puff Documented by: Dipyridamole/Aspirin (Aggrenox -) 1 combo PO BID [facility] Last Admin: 05/10/20 10:04 Dose: 1 combo Documented by: Enoxaparin Sodium (Lovenox -) 40 mg SQ DAILY [facility] Last Admin: 05/10/20 10:04 Dose: 40 mg Documented by: Gabapentin (Neurontin -) 600 mg PO TID [facility] Last Admin: 05/10/20 06:44 Dose: 600 mg Documented by: Insulin Aspart (Novolog Vial Sliding Scale -) 1 vial SQ TIDAC [facility]; Protocol Last Admin: 05/10/20 06:26 Dose: Not Given Documented by: Insulin Detemir (Levemir Vial) 25 units SQ AM [facility] Last Admin: 05/10/20 06:44 Dose: 25 units Documented by: Latanoprost (Xalatan 0.005% Eye Drops -) 1 drop OU [facility] Last Admin: 05/09/20 21:16 Dose: 1 drop Documented by: Meclizine HCl (Antivert -) 12.5 mg PO Q6HPO [facility] Last Admin: 05/10/20 06:44 Dose: 12.5 mg Documented by: Metoclopramide HCl (Reglan -) 10 mg PO TIDAC [facility] Last Admin: 05/10/20 06:44 Dose: 10 mg Documented by: Ondansetron HCl (Zofran Injection) 4 mg IVPUSH Q4H PRN PRN Reason: NAUSEA AND/OR VOMITING Pantoprazole Sodium (Protonix Iv) 40 mg IVPUSH DAILY [facility] Last Admin: 05/10/20 10:04 Dose: 40 mg Documented by: Ropinirole HCl (Requip -) 2 mg PO [facility] Last Admin: 05/09/20 21:17 Dose: 2 mg Documented by: - Objective Vital Signs: Vital Signs Temperature 98.6 F 05/10/20 10:00 Pulse Rate 78 05/10/20 10:00 Respiratory Rate 18 05/10/20 10:00 Blood Pressure 144/68 05/10/20 10:00 O2 Sat by Pulse Oximetry (%) 97 05/10/20 10:00 Constitutional: Yes: No Distress, Calm Eyes: Yes: Conjunctiva Clear, EOM Intact, PERRL HENT: Yes: Atraumatic, Normocephalic Neck: Yes: Supple, Trachea Midline Cardiovascular: Yes: Regular Rate and Rhythm, S1, S2. No: Bradycardia, Tach ycardia, Pulse Irregular, Bruit, JVD, Gallop, Murmur, Rub, S3, S4, Varicosities Respiratory: Yes: Regular, CTA Bilaterally. No: Rales, Rhonchi, Wheezes Gastrointestinal: Yes: Normal Bowel Sounds, Soft. No: Distention, Tenderness Musculoskeletal: Yes: WNL Extremities: Yes: WNL Edema: No Peripheral Pulses WNL: Yes Peripheral Pulses: Left Doralis Pedis: 2+, Right Dorsalis Pedis: 2+ Neurological: Yes: Alert, Oriented, Pre-Existing Deficit Psychiatric: Yes: Alert, Oriented Labs: CBC, BMP 05/07/20 07:20 05/09/20 15:50 - ....Imaging Chest X-ray: Report Reviewed, Image Reviewed EKG: Report Reviewed, Image Reviewed Other: Report Reviewed, Image Reviewed (tele-sinus rhythm, no arrhythmias recorded) Assessment/Plan 75 F DM, HTN HLD no prior ho arrhythmia or CAD was admitted with dizziness and vomiting and found to have a 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 Currently asymptomatic. CVA -no cardiac source indentified thus far -sinus rhythm with no sig arrhythmias on telemetry since admission -echo showed normal LVEF and no sig valvular abnl -receiving Aggrenox and atorvastatin -[facility] longer term event monitoring as outpatient, usually with a wearable event monitor x 30 days and if no afib/aflutter identified then would consider ILR implant -Neurology following -recc close outpatient cardiology fup.
[2020-05-10] MEDS: ACETAMINOPHEN 325 MG TABLET (FP) PO PRN (11:54)
[2020-05-10] MEDS: ATORVASTATIN CA 40 MG TABLET (FP) PO SCH (21:07)
[2020-05-10] MEDS: rOPINIRole HCL 1 MG TABLET (FP) PO SCH (21:08)
[2020-05-10] MEDS: LATANOPROST 0.005% OPHTH SOLN 2.5ML BOTTLE OU SCH (21:09)
--- NOTE | 2020-05-10 22:45 | PN ---
Progress Note (short form) - Note Progress Note: unsteady walking with difficulty Current Active Problems Asthma (Acute) CVA (cerebral vascular accident) (Acute) Diabetic gastroparesis (Acute) Dizziness (Acute) Glaucoma (Acute) Hypothyroid (Acute) Nausea vomiting and diarrhea (Acute) Peripheral neuropathy (Acute) Peripheral vascular disease (Acute) Weakness (Acute) Laboratory Tests 05/06/20 05/09/20 05/09/20 07:25 15:50 17:09 Sodium 139 Potassium 4.3 Chloride 105 Carbon Dioxide 26 Anion Gap 7 L BUN 15.8 Creatinine 0.7 POC Glucometer 254 Random Glucose 279 H TSH 2.41 05/10/20 05/10/20 05/10/20 05:57 16:58 21:10 Sodium Potassium Chloride Carbon Dioxide Anion Gap BUN Creatinine POC Glucometer 170 270 272 Random Glucose TSH plan: levemir 25 units am bgm qid novolog scale titrate as needed rehab and cva precaution effie consulted Problem List - Problems (1) Diabetic gastroparesis Code(s): E11.43 - TYPE 2 DIABETES W DIABETIC AUTONOMIC (POLY)NEUROPATHY; K31.84 - GASTROPARESIS (2) Dizziness Code(s): R42 - DIZZINESS AND GIDDINESS (3) Glaucoma Code(s): H40.9 - UNSPECIFIED GLAUCOMA (4) Nausea vomiting and diarrhea Code(s): R11.2 - NAUSEA WITH VOMITING, UNSPECIFIED; R19.7 - DIARRHEA, UNSPECIFIED (5) Peripheral neuropathy Code(s): G62.9 - POLYNEUROPATHY, UNSPECIFIED (6) Peripheral vascular disease Code(s): I73.9 - PERIPHERAL VASCULAR DISEASE, UNSPECIFIED
[2020-05-11] MEDS: MECLIZINE HCL 12.5 MG TABLET PO SCH ×5 (00:18→23:14)
[2020-05-11] MEDS: DOCUSATE SODIUM 100 MG CAPSULE (FP) PO SCH ×3 (00:18→22:29)
[2020-05-11] MEDS: GABAPENTIN 300 MG CAPSULE PO SCH ×3 (06:35→22:30)
[2020-05-11] MEDS: METOCLOPRAMIDE HCL 10 MG TABLET (FP) PO SCH ×3 (06:35→17:13)
[2020-05-11] MEDS: INSULIN SLIDING SCALE (NOVOLOG) 1 VIAL SQ SCH ×3 (06:38→17:04)
[2020-05-11] MEDS: INSULIN (LEVEMIR) 100 UNITS/ML UNITS SQ SCH (06:38)
--- NOTE | 2020-05-11 09:12 | DS ---
Physical Examination Vital Signs: Vital Signs Temperature 98.3 F 05/11/20 06:00 Pulse Rate 73 05/11/20 06:00 Respiratory Rate 18 05/11/20 06:00 Blood Pressure 144/77 05/11/20 06:00 O2 Sat by Pulse Oximetry (%) 98 05/10/20 22:00 Cardiovascular: Yes: Regular Rate and Rhythm Respiratory: Yes: Regular, CTA Bilaterally Gastrointestinal: Yes: Normal Bowel Sounds, Soft Neurological: Yes: Alert, Oriented, Paresthesia, Pre-Existing Deficit, Unsteady Gait Labs: CBC, BMP 05/07/20 07:20 05/09/20 15:50 Discharge Summary Problems reviewed: Yes Reason For Visit: WEAKNESS Current Active Problems Asthma (Acute) CVA (cerebral vascular accident) (Acute) Diabetic gastroparesis (Acute) Dizziness (Acute) Glaucoma (Acute) Hypothyroid (Acute) Nausea vomiting and diarrhea (Acute) Peripheral neuropathy (Acute) Peripheral vascular disease (Acute) Weakness (Acute) Hospital Course: - Problems (1) Diabetic gastroparesis Assessment/Plan: -GI CONSULT NOTED AND APPRECIATED -ON REGLAN--10 PO ACTID -ADVACE DIET AND OBSRVE -CT SCAN NOTED Code(s): E11.43 - TYPE 2 DIABETES W DIABETIC AUTONOMIC (POLY)NEUROPATHY; K31.84 - GASTROPARESIS (2) Nausea vomiting and diarrhea Assessment/Plan: DUE TO ABOVE CAN NOT EXCLUDE AGE Code(s): R11.2 - NAUSEA WITH VOMITING, UNSPECIFIED; R19.7 - DIARRHEA, UNSPECIFIED (3) Weakness Assessment/Plan: MAYBE DUE ELEVATED BLOOD SUGARS BGM FOLLOW LABS PT Code(s): R53.1 - WEAKNESS (4) Type 2 diabetes mellitus Assessment/Plan: BGM INSULIN ENDO CONSULT Code(s): E11.9 - TYPE 2 DIABETES MELLITUS WITHOUT COMPLICATIONS Qualifiers: Diabetes mellitus fdc insulin use: without fdc use Diabetes mellitus complication status: without complication Qualified Code(s): E11.9 - Type 2 diabetes mellitus without complications (5) Dizziness Assessment/Plan: CT HEAD NOTED MECLIZINE NEURO--NOTED MRI PENDING E/O CVA Code(s): R42 - DIZZINESS AND GIDDINESS IF MRI OK AND TOLERATING DIET THEN 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 Condition: Stable - Instructions Referrals: Barry Sanchez MD [Primary Care Provider] - 1 Week Disposition: HOME - Home Medications Comprehensive Discharge Medication List: Ambulatory Orders Budesonide/Formeterol Fumarate [SYMBICORT 160/4.5mcg -] 1 inh PO BID #1 cannister 03/21/20 Gabapentin 600 mg PO TID 03/21/20 Ropinirole HCl [Requip -] 2 mg PO DAILY 03/21/20 Bimatoprost [Lumigan] 1 drop OU BID 05/05/20 Acetaminophen [Tylenol .Regular Strength -] 650 mg PO Q4H PRN tablet 05/07/20 Insulin (Levemir) [Levemir Vial] 25 units SQ AM units 05/07/20 Latanoprost 0.005% Eye Drops [Xalatan 0.005% Eye Drops -] 1 drop OU HS drops 05/07/20 Meclizine HCl [Antivert -] 12.5 mg PO Q6HPO PRN #30 tablet 05/07/20 Aspirin/Dipyridamole [Aggrenox -] 1 combo PO BID capsule 05/10/20 Atorvastatin Ca [Lipitor] 40 mg PO HS tablet 05/10/20 Enoxaparin [Lovenox -] 40 mg SQ DAILY disp.syrin 05/10/20 Insulin Sliding Scale [Novolog Vial Sliding Scale -] 1 vial SQ TIDAC units 05/10/20 Metoclopramide HCl [Reglan -] 10 mg PO TIDAC tablet 05/10/20 Pantoprazole Sodium [Protonix -] 40 mg PO DAILY #30 tablet.ec 05/10/20
[2020-05-11] MEDS: ENOXAPARIN NA (PORCINE) 40 MG/0.4 ML DISP.SYRIN SQ SCH (09:51)
[2020-05-11] MEDS: PANTOPRAZOLE 40 MG TABLET PO SCH (09:51)
[2020-05-11] MEDS: ASPIRIN/DIPYRIDAMOLE 25 MG/200 MG CAPSULE PO SCH ×2 (09:52→22:30)
[2020-05-11] MEDS: ACETAMINOPHEN 325 MG TABLET (FP) PO PRN ×3 (09:52→23:18)
[2020-05-11] MEDS: BUDESONIDE/FORMETEROL FUMARATE 160/4.5 mcg INHALER IH SCH ×2 (10:00→22:29)
[2020-05-11] MEDS ORDERED: PT OWN MED DRAWER 7, Y5N ONE ×2 (17:18→22:20)
[2020-05-11] MEDS: LATANOPROST 0.005% OPHTH SOLN 2.5ML BOTTLE OU SCH (22:29)
[2020-05-11] MEDS: rOPINIRole HCL 1 MG TABLET (FP) PO SCH (22:30)
[2020-05-11] MEDS: ATORVASTATIN CA 40 MG TABLET (FP) PO SCH (22:30)
[2020-05-12] MEDS: INSULIN (LEVEMIR) 100 UNITS/ML UNITS SQ SCH (06:47)
[2020-05-12] MEDS: GABAPENTIN 300 MG CAPSULE PO SCH ×2 (06:47→13:45)
[2020-05-12] MEDS: INSULIN SLIDING SCALE (NOVOLOG) 1 VIAL SQ SCH ×3 (06:47→17:07)
[2020-05-12] MEDS: METOCLOPRAMIDE HCL 10 MG TABLET (FP) PO SCH ×3 (06:47→17:08)
[2020-05-12] MEDS: MECLIZINE HCL 12.5 MG TABLET PO SCH ×3 (06:47→17:08)
--- NOTE | 2020-05-12 08:12 | DS ---
Physical Examination Vital Signs: Vital Signs Temperature 97.9 F 05/12/20 06:00 Pulse Rate 75 05/12/20 06:00 Respiratory Rate 18 05/12/20 06:00 Blood Pressure 128/74 05/12/20 06:00 O2 Sat by Pulse Oximetry (%) 97 05/12/20 06:00 Cardiovascular: Yes: S1, S2 Respiratory: Yes: Regular, CTA Bilaterally Gastrointestinal: Yes: Normal Bowel Sounds, Soft Neurological: Yes: Alert, Oriented Labs: CBC, BMP 05/07/20 07:20 05/09/20 15:50 Discharge Summary Problems reviewed: Yes Reason For Visit: WEAKNESS Current Active Problems Asthma (Acute) CVA (cerebral vascular accident) (Acute) Diabetic gastroparesis (Acute) Dizziness (Acute) Glaucoma (Acute) Hypothyroid (Acute) Nausea vomiting and diarrhea (Acute) Peripheral neuropathy (Acute) Peripheral vascular disease (Acute) Weakness (Acute) Hospital Course: - Problems (1) Diabetic gastroparesis Assessment/Plan: -GI CONSULT NOTED AND APPRECIATED -ON REGLAN--10 PO ACTID -ADVACE DIET AND OBSRVE -CT SCAN NOTED Code(s): E11.43 - TYPE 2 DIABETES W DIABETIC AUTONOMIC (POLY)NEUROPATHY; K31.84 - GASTROPARESIS (2) Nausea vomiting and diarrhea Assessment/Plan: DUE TO ABOVE CAN NOT EXCLUDE AGE Code(s): R11.2 - NAUSEA WITH VOMITING, UNSPECIFIED; R19.7 - DIARRHEA, UNSPECIFIED (3) Weakness Assessment/Plan: MAYBE DUE ELEVATED BLOOD SUGARS BGM FOLLOW LABS PT Code(s): R53.1 - WEAKNESS (4) Type 2 diabetes mellitus Assessment/Plan: BGM INSULIN ENDO CONSULT Code(s): E11.9 - TYPE 2 DIABETES MELLITUS WITHOUT COMPLICATIONS Qualifiers: Diabetes mellitus usp insulin use: without usp use Diabetes mellitus complication status: without complication Qualified Code(s): E11.9 - Type 2 diabetes mellitus without complications (5) Dizziness Assessment/Plan: CT HEAD NOTED MECLIZINE NEURO--NOTED MRI PENDING E/O CVA Code(s): R42 - DIZZINESS AND GIDDINESS IF MRI OK AND TOLERATING DIET THEN 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 Condition: Stable - Instructions Referrals: Barry Sanchez MD [Primary Care Provider] - 1 Week Disposition: HOME - Home Medications Comprehensive Discharge Medication List: Ambulatory Orders Budesonide/Formeterol Fumarate [SYMBICORT 160/4.5mcg -] 1 inh PO BID #1 cannister 03/21/20 Gabapentin 600 mg PO TID 03/21/20 Ropinirole HCl [Requip -] 2 mg PO DAILY 03/21/20 Bimatoprost [Lumigan] 1 drop OU BID 05/05/20 Acetaminophen [Tylenol .Regular Strength -] 650 mg PO Q4H PRN tablet 05/07/20 Insulin (Levemir) [Levemir Vial] 25 units SQ AM units 05/07/20 Latanoprost 0.005% Eye Drops [Xalatan 0.005% Eye Drops -] 1 drop OU HS drops 05/07/20 Meclizine HCl [Antivert -] 12.5 mg PO Q6HPO PRN #30 tablet 05/07/20 Aspirin/Dipyridamole [Aggrenox -] 1 combo PO BID capsule 05/10/20 Atorvastatin Ca [Lipitor] 40 mg PO HS tablet 05/10/20 Enoxaparin [Lovenox -] 40 mg SQ DAILY disp.syrin 05/10/20 Insulin Sliding Scale [Novolog Vial Sliding Scale -] 1 vial SQ TIDAC units 05/10/20 Metoclopramide HCl [Reglan -] 10 mg PO TIDAC tablet 05/10/20 Pantoprazole Sodium [Protonix -] 40 mg PO DAILY #30 tablet.ec 05/10/20
[2020-05-12] MEDS: DOCUSATE SODIUM 100 MG CAPSULE (FP) PO SCH (09:08)
[2020-05-12] MEDS: PANTOPRAZOLE 40 MG TABLET PO SCH (09:08)
[2020-05-12] MEDS: BUDESONIDE/FORMETEROL FUMARATE 160/4.5 mcg INHALER IH SCH (09:08)
[2020-05-12] MEDS: ASPIRIN/DIPYRIDAMOLE 25 MG/200 MG CAPSULE PO SCH (09:08)
[2020-05-12] MEDS: ENOXAPARIN NA (PORCINE) 40 MG/0.4 ML DISP.SYRIN SQ SCH (09:08)
[2020-05-12 17:26] VITALS: BP 148/78; PULSE 84; TEMP 98.8
== END 2020-05-12 17:36 | DRG 65 ==
LOC: JER 06:48 → JERBED 16:54 → J7W 18:23 → J4S 05-08 23:14
PROVIDERS: ADMIT Family Medicine; ATTEND Family Medicine
DX: I63.9 Cerebral infarction, unspecified (principal); J84.9 Interstitial pulmonary disease, unspecified; N39.0 Urinary tract infection, site not specified; I10 Essential (primary) hypertension; E78.5 Hyperlipidemia, unspecified; R11.2 Nausea with vomiting, unspecified; E11.42 Type 2 diabetes mellitus with diabetic polyneuropathy; J45.909 Unspecified asthma, uncomplicated; E03.9 Hypothyroidism, unspecified; E11.51 Type 2 diabetes mellitus with diabetic peripheral angiopathy without gangrene; H40.9 Unspecified glaucoma; E11.43 Type 2 diabetes mellitus with diabetic autonomic (poly)neuropathy; K31.84 Gastroparesis; R53.1 Weakness; B95.1 Streptococcus, group B, as the cause of diseases classified elsewhere; R26.81 Unsteadiness on feet
CPT/HCPCS: 36415; 70450-TC; 70544-TC; 70551-TC; 74177-TC; 80053; 81003; 82150; 82550; 82553; 82607; 82962; 83036; 83605; 83690; 84436; 84443; 84484; 85025; 86140; 87045; 87046; 87077; 87086; 87205; 90670; 93005; 93010; 93225; 93226; 93306-TC; 93880-TC; 97116-GP; 97161-GP; 99285-25; J0131; Q9967; U0003